=== PATIENT | female | born 1940 | race Caucasian/White ===

== ENCOUNTER 2018-02-11 08:27 | Inpatient (IN) | payer OTHER ==
--- NOTE | 2018-02-11 07:49 | HP ---
Satellite [facility] - Chief Complaint Chief Complaint: right knee pain - Past Medical History Allergies/Adverse Reactions: Allergies Allergy/AdvReac Type Severity Reaction Status Date / Time Penicillins Allergy Severe Rash Verified 02/04/18 13:29 - Current Medications Current Medications: Home Medications Medication Instructions Recorded Amlodipine Besylate 2.5 mg PO HS 02/04/18 Atorvastatin Ca [Lipitor] 10 mg PO HS 02/04/18 Carvedilol 3.125 mg PO BID 02/04/18 Duloxetine HCl [Cymbalta -] 120 mg PO HS 02/04/18 Metformin HCl [Metformin HCl ER] 500 mg PO DAILY 02/04/18 Omeprazole 40 mg PO DAILY 02/04/18 Pregabalin [Lyrica] 200 mg PO BID 02/04/18 Sitagliptin Phosphate [Januvia] 25 mg PO HS 02/04/18 Satellite Physical Exam - Physical Examination General Appearance: Well Nourished, Well Developed, Alert & Oriented x3 ENT: Clear Lung: Normal air movement Heart: Regular rate & rhythm Extremities: Other (right knee- + swelling, + ttp, decr rom, nvi xrays show grade 4 tricompartmental djd) Neurological: Intact, Alert, Oriented Satellite Impression/Plan - Impression/Plan Impression: right knee djd Operative Procedure: right celso tkr Date to be Performed: 02/11/18
[~2018-02-11 08:27] MED LIST: CEFAZOLIN 1 GM/D5W 50 ML IVPB ONE; CELECOXIB 200 MG CAPSULE PO ONE; GABAPENTIN 300 MG CAPSULE (FP) PO ONE; TRANEXAMIC ACID 1000 MG/10 ML VIAL IVPUSH ONE
[2018-02-11] MEDS ORDERED: CEFAZOLIN 1 GM/D5W 1 GM/50 ML BAG IVPB ONE (08:47)
[2018-02-11] MEDS ORDERED: CELECOXIB 200 MG CAPSULE PO ONE (08:47)
[2018-02-11] MEDS ORDERED: TRANEXAMIC ACID 1000 MG/10 ML VIAL IVPUSH ONE (08:47)
[2018-02-11] MEDS ORDERED: GABAPENTIN 300 MG CAPSULE (FP) PO ONE (08:47)
[2018-02-11] MEDS ORDERED: GABAPENTIN 300 MG CAPSULE (FP) ONE (08:53)
[2018-02-11] MEDS ORDERED: CELECOXIB 200 MG CAPSULE ONE (08:54)
[2018-02-11] MEDS ORDERED: MIDAZOLAM HCL 2 MG/2 ML SINGLE DOSE VIAL ONE (10:49)
[2018-02-11] MEDS ORDERED: BUPIVACAINE LIPOSOME/PF (EXPAREL) 266 MG/20 ML VIAL ONE (10:49)
[2018-02-11] MEDS ORDERED: BUPIVACAINE HCL/PF 2.5 MG/ML - 30 ML VIAL IJ ONE (10:49)
[2018-02-11] MEDS ORDERED: VANCOMYCIN 1,000 MG VIAL (RESTRICTED TO ID ONLY) ONE (11:01)
[2018-02-11] MEDS ORDERED: ceFAZolin SODIUM 1 GM VIAL ONE ×2 (11:01→11:34)
[2018-02-11] MEDS ORDERED: DEXAMETHASONE SOD PHOSPHATE 4 MG/1 ML VIAL ONE (11:34)
[2018-02-11] MEDS ORDERED: ONDANSETRON 4 MG/2 ML VIAL ONE (11:34)
[2018-02-11] MEDS ORDERED: TRANEXAMIC ACID 1000 MG/10 ML VIAL ONE ×2 (11:34→12:55)
[2018-02-11] MEDS ORDERED: PROMETHAZINE HCL 25 MG/1 ML VIAL IVPUSH PRN (12:42)
[2018-02-11] MEDS ORDERED: ONDANSETRON 4 MG/2 ML VIAL IVPUSH PRN (12:42)
[2018-02-11] MEDS ORDERED: oxyCODONE HCL 5 MG TABLET PO PRN (12:42)
[2018-02-11] MEDS ORDERED: VANCOMYCIN 1,000 MG VIAL (RESTRICTED TO ID ONLY) IVPB ONE (12:43)
[2018-02-11] MEDS ORDERED: MAGNESIUM HYDROX 2400MG/30ML ORAL SUSPENSION 30 ML CUP PO PRN (13:06)
--- NOTE | 2018-02-11 13:11 | OP ---
Operative Note - Note: Operative Date: 02/11/18 (jacoby) Pre-Operative Diagnosis: right knee djd Operation: right celso tkr Post-Operative Diagnosis: Same as Pre-op Surgeon: Tong Sibley Plastic Surgeon: Marky Soto Anesthesiologist/FIRE REGULATOR: Prosper Nelson Anesthesia: Spinal, Local Specimens Removed: bone fragments Estimated Blood Loss (mls): 100 Operative Report Dictated: Yes
[2018-02-11] MEDS ORDERED: LACTATED RINGERS SOLUTION 1,000 ML IV SCH (13:15)
[2018-02-11] MEDS: ACETAMINOPHEN 325 MG TABLET (FP) PO SCH ×2 (16:36→21:13)
[2018-02-11] MEDS: INSULIN SLIDING SCALE (NOVOLOG) 1 VIAL SQ SCH ×2 (17:24→22:36)
[2018-02-11] MEDS: DULoxetine HCL 30 MG CAPSULE.DR (FP) PO SCH (21:12)
[2018-02-11] MEDS: SENNOSIDES/DOCUSATE COMBO (SENNA PLUS) TABLET (UD) PO SCH ×2 (21:12→21:17)
[2018-02-11] MEDS: oxyCODONE HCL 5 MG TABLET PO PRN (21:12)
[2018-02-11] MEDS: PREGABALIN 50 MG CAPSULE PO SCH (21:12)
[2018-02-11] MEDS: CARVEDILOL 3.125 MG TABLET (FP) PO SCH (21:13)
[2018-02-11] MEDS: ATORVASTATIN CA 10 MG TABLET (FP) PO SCH (21:13)
[2018-02-11] MEDS: CEFAZOLIN 1 GM/D5W 1 GM/50 ML BAG IVPB SCH (21:13)
[2018-02-11] MEDS: oxyCODONE HCL 10 MG SUSTAINED ACTING TABLET PO SCH (21:13)
[2018-02-11] MEDS ORDERED: sitaGLIPtin PHOSPHATE 25 MG TABLET (FP) PO SCH (22:00)
[2018-02-12] MEDS: ACETAMINOPHEN 325 MG TABLET (FP) PO SCH ×4 (04:26→21:29)
[2018-02-12] MEDS: CEFAZOLIN 1 GM/D5W 1 GM/50 ML BAG IVPB SCH (04:26)
[2018-02-12] MEDS: oxyCODONE HCL 5 MG TABLET PO PRN (06:26)
[2018-02-12] MEDS: INSULIN SLIDING SCALE (NOVOLOG) 1 VIAL SQ SCH ×4 (06:27→21:38)
[2018-02-12 08:17] LABS: HEMATOCRIT 31.3 % (32.4-45.2); HEMOGLOBIN 10.4 GM/dl (10.7-15.3); MCH 26.2 pg (25.7-33.7); MCHC 33.2 g/dl (32.0-36.0); MEAN PLT VOLUME 10.5 fl (7.5-11.1); PLATELET COUNT 205 K/MM3 (134-434); RBC 3.96 M/mm3 (3.60-5.2); RDW 14.8 % (11.6-15.6); WHITE BLOOD COUNT 12.3 K/mm3 (4.0-10.8)
--- NOTE | 2018-02-12 08:59 | OP ---
DATE OF OPERATION: 02/11/2018 PREOPERATIVE DIAGNOSIS: Degenerative joint disease, right knee. POSTOPERATIVE DIAGNOSIS: Degenerative joint disease, right knee. PROCEDURE: Right total knee replacement with robotic-assisted navigation (MAKOplasty). SURGICAL ATTENDING: Tong Sibley MD ARTISTIC DIRECTOR: TALIA White ANESTHESIA: Regional and spinal. CLOSURE: A Triathlon cemented knee system with 3 femur, 3 tibia with a short 50-mm stem, a 9 polyethylene and 32 patella, number 1 Vicryl fascia, 0 and 2-0 subcutaneous and 3-0 Monocryl subcuticular with skin glue for skin, 4-0 undyed Vicryl for pin sites. ESTIMATED BLOOD LOSS: Approximately 100 mL. COMPLICATIONS: None. CONDITION: To recovery room in stable condition. DESCRIPTION OF OPERATIVE PROCEDURE: Patient taken to the operating room on February 11, 2018. Regional and spinal anesthesia were administered by the anesthesiologist. IV Kefzol administered prophylactically prior to the case as well as TXA. Well-padded pneumatic tourniquet was placed on the right proximal thigh. The right lower extremity was prepped and draped in the usual sterile fashion. A 10-12 cm longitudinal midline incision was incised over the knee, tented over the patella. Hemostasis achieved with Bovie cautery. Sharp dissection was carried down to the level of the extensor mechanism with sufficient to perform the procedure. A medial parapatellar arthrotomy was then performed, and after inverting the patella, flexed the knee up to 90 degree. Subperiosteal dissection was done on the anterior medial proximal tibia until the knee was able to be brought forward. This was facilitated by taking the menisci and anterior and posterior cruciate ligaments. Checkpoints were malleted both the femur and the tibia, going obliquely from the medial and femoral condyle. Two threaded pins were drilled in parallel fashion, and these pins were fastened in the navigation array for the Raf navigation device. Through 2 small stab incisions distally on the tibia, 2 pins were drilled in parallel fashion through the outer cortex then up into the notch the posterior cortex. Again, the navigation securely fastened. The knee was then registered with the navigation device with center of rotation at the hip, medial and lateral malleoli, and multiple points on both the femur and on the tibia. Excellent registration was obtained and was confirmed by "popping the bubbles." At this point, all the osteophytes were removed circumferentially around the knee. The knee was then stressed in varus, valgus at both 0 and 90 degrees gaps, the virtual position of the component was optimized to insure equal gapping in both flexion and extension. The robot was then brought onto the field and was used to osteotomize the bone as per our virtual position as directed by the Raf device. Trial components were applied, the 9-mm insert and found to have full extension, full flexion, with good tension throughout. Patella was and then was osteotomized at the appropriate level. Excellent tracking of the patella from full extension to full flexion was obtained. The trial components were removed. The keel was then malleted. The bone was very soft, and some of the anterior cortex was found to be peeling off. It was thus decided to add a short, 15-mm extension to the tibial baseplate. The knee was pulse antibiotic irrigated, the leg was exsanguinated with an Esmarch bandage. The real components were then cemented in using modern generation cement technique with antibiotic cement. Pressurization and extension were performed, all excess cement was removed. After the cement got hard, the knee was thoroughly inspected to remove any excess cement. The real 9-mm insert was then applied. Again, the knee was taken through a range of motion and found to have full extension, full flexion with excellent tracking of the patella throughout. The area was thoroughly irrigated again with antibiotic irrigation. Vancomycin powder was administered into the arthrotomy. The medial parapatellar arthrotomy was then closed using number 1 Vicryl interrupted suture. This was performed after the pins were removed as were the checkpoints. The subcutaneous was pulse antibiotic irrigated and closed in layers with 0 and 2-0 Vicryl, 3-0 Monocryl subcuticular with skin glue. The pins in the tibia were removed and pin sites closed using 4-0 undyed Vicryl. An Aquacel pressure dressing was applied, the patient awakened from anesthesia, and transferred in stable condition with no complications. Estimated blood loss less than 100 mL. The tourniquet was prior to cementing and was deflated after the cement got hard. Postoperative x-rays revealed excellent position and . She was transferred to recovery in stable condition with no complications. Brady [id number]
--- NOTE | 2018-02-12 09:54 | PN ---
Progress Note, Physician Chief Complaint: day #1 s/p right TKR - Current Medication List Current Medications: Active Medications Acetaminophen (Tylenol -) 650 mg PO Q6H [facility] Stop: 02/14/18 15:59 Last Admin: 02/12/18 04:26 Dose: 650 mg Al Hydroxide/Mg Hydroxide (Mylanta Oral Suspension -) 30 ml PO Q4H PRN PRN Reason: DYSPEPSIA Amlodipine Besylate (Norvasc -) 2.5 mg PO DAILY [facility] Aspirin (Asa -) 325 mg PO DAILY@0800 [facility] Atorvastatin Calcium (Lipitor -) 10 mg PO HS [facility] Last Admin: 02/11/18 21:13 Dose: 10 mg Carvedilol (Coreg -) 3.125 mg PO BID [facility] Last Admin: 02/11/18 21:13 Dose: 3.125 mg Duloxetine HCl (Cymbalta -) 120 mg PO [facility] Last Admin: 02/11/18 21:12 Dose: 120 mg Fentanyl (Sublimaze Injection -) 25 mcg IVPUSH [id number] PRN PRN Reason: PAIN-PACU ORDER X 4 DOSES ONLY Insulin Aspart (Novolog Vial Sliding Scale -) 1 vial SQ [facility]; Protocol Last Admin: 02/12/18 06:27 Dose: 6 units Magnesium Hydroxide (Milk Of Magnesia -) 30 ml PO PRN PRN PRN Reason: CONSTIPATION Metformin HCl (Glucophage Xr -) 500 mg PO DAILY [facility] Multivitamins/Minerals/Vitamin C (Tab-A-Vit -) 1 tab PO DAILY [facility] Ondansetron HCl (Zofran Injection) 4 mg IVPUSH Q6H PRN PRN Reason: NAUSEA AND/OR VOMITING Oxycodone HCl (Roxicodone -) 5 mg PO Q3H PRN PRN Reason: PAIN LEVEL 1-5 Oxycodone HCl (Roxicodone -) 10 mg PO Q3H PRN PRN Reason: PAIN LEVEL 6-10 Last Admin: 02/12/18 06:26 Dose: 10 mg Oxycodone HCl (Oxycontin -) 10 mg PO BID [facility] Stop: 02/14/18 12:42 Last Admin: 02/11/18 21:13 Dose: 10 mg Pantoprazole Sodium (Protonix -) 40 mg PO DAILY [facility] Pregabalin (Lyrica -) 200 mg PO BID [facility] Last Admin: 02/11/18 21:12 Dose: 200 mg Promethazine HCl (Phenergan Injection -) 12.5 mg IVPUSH Q6H PRN PRN Reason: NAUSEA-FOR RESCUE AFTER 15 MIN Senna/Docusate Sodium (Pericolace -) 2 tablet PO BID [facility] Last Admin: 02/11/18 21:17 Dose: Not Given Sitagliptin Phosphate (Januvia -) 25 mg PO BID [facility] - Objective Vital Signs: Vital Signs Temperature 97.8 F 02/12/18 06:17 Pulse Rate 82 02/12/18 06:17 Respiratory Rate 18 02/12/18 06:17 Blood Pressure 149/57 02/12/18 06:17 O2 Sat by Pulse Oximetry (%) 96 02/12/18 06:17 Labs: CBC, BMP 02/12/18 07:30 Assessment/Plan Pt with some pain this morning, that improved with PO pain meds. Pt eating, OOB to chair, currently resting comfortably
[2018-02-12] MEDS ORDERED: PANTOPRAZOLE 40 MG TABLET (FP) PO SCH (10:00)
[2018-02-12] MEDS ORDERED: sitaGLIPtin PHOSPHATE 25 MG TABLET (FP) PO ONE (10:00)
--- NOTE | 2018-02-12 12:23 | PN ---
Progress Note (short form) - Note Progress Note: Ortho Pt seen and examined s/p right celso tkr pod #1 Selected Entries 02/12/18 06:17 Temperature 97.8 F Pulse Rate 82 Respiratory 18 Rate Blood Pressure 149/57 Laboratory Tests 02/12/18 07:30 WBC 12.3 H Hgb 10.4 L Hct 31.3 L Plt Count 205 dressing c/d/i, calf soft, nt rom 0-50, nvi a/p PT dvt ppx pain control d/c planning to rehab
[2018-02-12] MEDS: PANTOPRAZOLE 40 MG TABLET (FP) PO SCH (13:00)
[2018-02-12] MEDS: CARVEDILOL 3.125 MG TABLET (FP) PO SCH ×2 (13:00→21:30)
[2018-02-12] MEDS: PREGABALIN 50 MG CAPSULE PO SCH ×2 (13:00→21:30)
[2018-02-12] MEDS: MULTIVITAMINS (DAILY MVI) TABLET (FP) PO SCH (13:00)
[2018-02-12] MEDS: ASPIRIN 325 MG TABLET PO SCH (13:00)
[2018-02-12] MEDS: amLODIPine BESYLATE 2.5 MG TABLET (FP) PO SCH (13:00)
[2018-02-12] MEDS: oxyCODONE HCL 10 MG SUSTAINED ACTING TABLET PO SCH ×2 (19:12→21:31)
[2018-02-12] MEDS: SENNOSIDES/DOCUSATE COMBO (SENNA PLUS) TABLET (UD) PO SCH ×2 (19:12→21:31)
[2018-02-12] MEDS: ATORVASTATIN CA 10 MG TABLET (FP) PO SCH (21:30)
[2018-02-12] MEDS: DULoxetine HCL 30 MG CAPSULE.DR (FP) PO SCH (21:30)
[2018-02-13] MEDS: MAG HYDROX/AL HYDROX/SIMETH 30 ML UNIT-DOSE CUP PO PRN ×2 (05:41→23:21)
[2018-02-13] MEDS: INSULIN SLIDING SCALE (NOVOLOG) 1 VIAL SQ SCH ×4 (06:35→22:00)
[2018-02-13] MEDS: ACETAMINOPHEN 325 MG TABLET (FP) PO SCH ×4 (06:35→22:02)
[2018-02-13] MEDS ORDERED: ONDANSETRON 4 MG/2 ML VIAL IVPUSH PRN (08:17)
--- NOTE | 2018-02-13 08:18 | PN ---
Progress Note (short form) - Note Progress Note: Ortho Pt seen and examined s/p right celso tkr pod #2. c/o nausea Selected Entries 02/13/18 06:00 Temperature 98.1 F Pulse Rate 67 Respiratory 20 Rate Blood Pressure 108/50 Laboratory Tests 02/13/18 07:55 WBC Pending Hgb Pending Hct Pending Plt Count Pending dressing c/d/i, calf soft, nt rom 0-50, nvi a/p Zofran ordered PT dvt ppx pain control d/c planning to rehab for tomorrow if stable
[2018-02-13] MEDS: ASPIRIN 325 MG TABLET PO SCH (08:19)
[2018-02-13 08:24] LABS: HEMATOCRIT 32.7 % (32.4-45.2); HEMOGLOBIN 10.9 GM/dl (10.7-15.3); MCH 26.5 pg (25.7-33.7); MCHC 33.2 g/dl (32.0-36.0); MEAN CELL VOLUME 79.6 fl (80-96); MEAN PLT VOLUME 9.9 fl (7.5-11.1); PLATELET COUNT 168 K/MM3 (134-434); RBC 4.11 M/mm3 (3.60-5.2); RDW 14.9 % (11.6-15.6); WHITE BLOOD COUNT 14.9 K/mm3 (4.0-10.8)
[2018-02-13] MEDS: ONDANSETRON *ODT* 4 MG TABLET SL PRN (08:49)
[2018-02-13] MEDS ORDERED: ONDANSETRON 4 MG/2 ML VIAL ONE (09:23)
[2018-02-13] MEDS: CARVEDILOL 3.125 MG TABLET (FP) PO SCH ×2 (11:31→22:00)
[2018-02-13] MEDS: PREGABALIN 50 MG CAPSULE PO SCH ×2 (11:32→22:00)
[2018-02-13] MEDS: amLODIPine BESYLATE 2.5 MG TABLET (FP) PO SCH (11:32)
[2018-02-13] MEDS: MULTIVITAMINS (DAILY MVI) TABLET (FP) PO SCH (11:33)
[2018-02-13] MEDS: oxyCODONE HCL 10 MG SUSTAINED ACTING TABLET PO SCH ×2 (11:33→22:01)
[2018-02-13] MEDS: PANTOPRAZOLE 40 MG TABLET (FP) PO SCH (11:33)
[2018-02-13] MEDS: SENNOSIDES/DOCUSATE COMBO (SENNA PLUS) TABLET (UD) PO SCH ×2 (11:33→22:01)
--- NOTE | 2018-02-13 13:37 | CONSULT ---
Consultation: REQUESTING PROVIDER: Dr Agosto CONSULT REQUEST: We have been asked to medically evaluate this patient for nause and vomiting HISTORY OF PRESENT ILLNESS: Patient is a 77 y/o female with a past medical history of hypertension, hyperlipidemia, DM,GERD, ovarian CA, lymphoma, small bowel obstruction October 2017 8 day hospitalization at [facility] resolved with medical management, and depression. Patient is S/P right total knee replacement postoperative day 1 spinal anesthesia. REVIEW OF SYSTEMS: CONSTITUTIONAL: Absent: fever, chills, diaphoresis, generalized weakness, malaise, loss of appetite, weight change HEENT: Absent: rhinorrhea, nasal congestion, throat pain, throat swelling, difficulty swallowing, mouth swelling, ear pain, eye pain, visual changes CARDIOVASCULAR: Absent: chest pain, syncope, palpitations, irregular heart rate, lightheadedness , peripheral edema RESPIRATORY: Absent: cough, shortness of breath, dyspnea with exertion, orthopnea, wheezing, stridor, hemoptysis GASTROINTESTINAL: present: nausea, vomiting, Absent: abdominal pain, abdominal distension, diarrhea, constipation, melena, hematochezia GENITOURINARY: Absent: dysuria, frequency, urgency, hesitancy, hematuria, flank pain, genital pain MUSCULOSKELETAL: Absent: myalgia, arthralgia, joint swelling, back pain, neck pain Present: right knee pain SKIN: Absent: rash, itching, pallor HEMATOLOGIC/IMMUNOLOGIC: Absent: easy bleeding, easy bruising, lymphadenopathy, frequent infections ENDOCRINE: Absent: unexplained weight gain, unexplained weight loss, heat intolerance, cold intolerance NEUROLOGIC: Absent: headache, focal weakness or paresthesias, dizziness, unsteady gait, seizure, mental status changes, bladder or bowel incontinence PSYCHIATRIC: Absent: anxiety, depression, suicidal or homicidal ideation, hallucinations. PHYSICAL EXAMINATION Vital Signs - 24 hr 02/12/18 02/12/18 02/13/18 13:51 22:35 06:00 Temperature 97.8 F 97.8 F 98.1 F Pulse Rate 66 66 67 Respiratory 16 19 20 Rate Blood Pressure 118/46 127/49 108/50 O2 Sat by Pulse 95 94 L Oximetry (%) GENERAL: Awake, alert, and fully oriented, in no acute distress. HEAD: Normal with no signs of trauma. EYES: Pupils equal, round and reactive to light, extraocular movements intact, sclera anicteric, conjunctiva clear. No lid lag. EARS, NOSE, THROAT: Ears normal, nares patent, oropharynx clear without exudates. Moist mucous membranes. NECK: Normal range of motion, supple without lymphadenopathy, JVD, or masses. LUNGS: Breath sounds equal, clear to auscultation bilaterally. No wheezes, and no crackles. No accessory muscle use. HEART: Regular rate and rhythm, normal S1 and S2 without murmur, rub or gallop. ABDOMEN: Soft, nontender, not distended, normoactive bowel sounds, no guarding, no rebound, no masses. No hepatomegaly or splenomegaly. MUSCULOSKELETAL: Normal range of motion at all joints. No bony deformities or tenderness. No CVA tenderness. UPPER EXTREMITIES: 2+ pulses, warm, well-perfused. No cyanosis. No clubbing. Cap refill <2 seconds. No peripheral edema. LOWER EXTREMITIES: 2+ pulses, warm, well-perfused. No calf tenderness. No peripheral edema. RIGHT LOWER EXTREMITY: dressing CDI less than 3 second capillary refill +4 pedal pulse NEUROLOGICAL: Cranial nerves II-XII intact. Normal speech. Normal gait. PSYCHIATRIC: Cooperative. Good eye contact. Appropriate mood and affect. SKIN: Warm, dry, normal turgor, no rashes or lesions noted. Laboratory Results - last 24 hr 02/12/18 02/12/18 02/13/18 14:42 21:36 06:23 WBC RBC Hgb Hct MCV MCH MCHC RDW Plt Count MPV POC Glucometer 206 157 199 02/13/18 07:55 WBC 14.9 H RBC 4.11 Hgb 10.9 Hct 32.7 MCV 79.6 L MCH 26.5 MCHC 33.2 RDW 14.9 Plt Count 168 MPV 9.9 POC Glucometer Active Medications Generic Name Dose Route Start Last Admin Trade Name Freq PRN Reason Stop Dose Admin Acetaminophen 650 mg 02/11/18 16:00 02/13/18 12:50 Tylenol - PO 02/14/18 15:59 Not Given Q6H BEN Al Hydroxide/Mg Hydroxide 30 ml 02/11/18 13:06 02/13/18 05:41 Mylanta Oral Suspension - PO 30 ml Q4H PRN Administration DYSPEPSIA Amlodipine Besylate 2.5 mg 02/12/18 10:00 02/13/18 11:32 Norvasc - PO Not Given DAILY [facility] Aspirin 325 mg 02/12/18 08:00 02/13/18 08:19 Asa - PO 325 mg DAILY@0800 [facility] Administration Atorvastatin Calcium 10 mg 02/11/18 22:00 02/12/18 21:30 Lipitor - PO 10 mg HS [facility] Administration Carvedilol 3.125 mg 02/11/18 22:00 02/13/18 11:31 Coreg - PO Not Given BID [facility] Duloxetine HCl 120 mg 02/11/18 22:00 02/12/18 21:30 Cymbalta - PO 120 mg HS [facility] Administration Fentanyl 25 mcg 02/11/18 12:42 Sublimaze Injection - IVPUSH [id number] PRN PAIN-PACU ORDER X 4 DOSES ONLY Insulin Aspart 1 vial 02/11/18 16:30 02/13/18 12:50 Novolog Vial Sliding Scale - SQ Not Given ACHS [facility] Protocol Magnesium Hydroxide 30 ml 02/11/18 13:06 Milk Of Magnesia - PO PRN PRN CONSTIPATION Metformin HCl 500 mg 02/12/18 10:00 02/13/18 11:32 Glucophage Xr - PO Not Given DAILY [facility] Multivitamins/Minerals/Vitamin C 1 tab 02/12/18 10:00 02/13/18 11:33 Tab-A-Vit - PO Not Given DAILY [facility] Ondansetron HCl 4 mg 02/13/18 08:27 02/13/18 08:49 Zofran Odt - SL 4 mg Q6H PRN Administration NAUSEA AND/OR VOMITING Oxycodone HCl 5 mg 02/11/18 12:42 Roxicodone - PO Q3H PRN PAIN LEVEL 1-5 Oxycodone HCl 10 mg 02/11/18 12:42 02/12/18 06:26 Roxicodone - PO 10 mg Q3H PRN Administration PAIN LEVEL 6-10 Oxycodone HCl 10 mg 02/11/18 22:00 02/13/18 11:33 Oxycontin - PO 02/14/18 12:42 Not Given BID [facility] Pantoprazole Sodium 40 mg 02/12/18 10:00 02/13/18 11:33 Protonix - PO Not Given DAILY [facility] Pregabalin 200 mg 02/11/18 22:00 02/13/18 11:32 Lyrica - PO Not Given BID [facility] Promethazine HCl 12.5 mg 02/11/18 12:42 02/13/18 09:30 Phenergan Injection - IVPUSH 12.5 mg Q6H PRN Administration NAUSEA-FOR RESCUE AFTER 15 MIN Senna/Docusate Sodium 2 tablet 02/11/18 22:00 02/13/18 11:33 Pericolace - PO Not Given BID [facility] Sitagliptin Phosphate 25 mg 02/11/18 22:00 Januvia - PO BID [facility] ASSESSMENT/PLAN: 1)MS S/P right total knee replacement - When necessary pain medication - Physical therapy as per the orthopedist - Incentive spirometry 2) GI nausea/vomiting - + BS on exam, patient passing flatus - continue phenergran - advise full liquid diet, close monitoring if nausea and vomiting continues advice abdomen flat and upright GERD - continue protonix 3) endo DM - continue januvia, metformin, fingersticks before meals and at bedtime 4) cardiovascular Hypertension - continue Coreg, blood pressure remains at goal Dispo: We will continue to follow the patient. Thank you for this consultative opportunity. Visit type - Emergency Visit Emergency Visit: No - New Patient This patient is new to me today: Yes Date on this admission: 02/13/18 - Critical Care Critical Care patient: No
[2018-02-13] MEDS ORDERED: PANTOPRAZOLE SODIUM 40 MG VIAL IVPUSH ONE (13:38)
[2018-02-13 15:15] VITALS: BMI 28.2
--- NOTE | 2018-02-13 16:52 | PATH ---
Surgical Pathology Report Patient Name: ANTONIO RENNER Med. Rec. #: [id number] /Age/Gender: 1940 (Age: 77) / F Account: [id number] Location: [facility] MED-SURG Taken: 02/11/2018 Received: 02/11/2018 Reported: 02/13/2018 Physicians: Tong Sibley M.D. Specimen(s) Received RIGHT KNEE BONES Clinical History Osteoarthritis right knee Final Diagnosis RIGHT KNEE BONES, RESECTION: DEGENERATIVE JOINT DISEASE, RIGHT KNEE. Electronically Signed Karina Obrien M.D. Gross Description Received in formalin labeled "right knee bones," is a 10.5 x 9.5 x 1.6 cm aggregate of multiple portions of bone and soft tissue. The tibial plateau measures 7.0 x 5.2 x 1.5 cm. There is a 3 cm in greatest dimension area of eburnation identified. The remaining articular surfaces are parker-yellow and diffusely granular. The underlying trabecular bone is yellow and hard. Pack Master sections are submitted in one cassette, following decalcification. 02/12/2018 [facility]02/12/2018
[2018-02-13] MEDS: DULoxetine HCL 30 MG CAPSULE.DR (FP) PO SCH (22:00)
[2018-02-13] MEDS: ATORVASTATIN CA 10 MG TABLET (FP) PO SCH (22:00)
[2018-02-14] MEDS: CARVEDILOL 3.125 MG TABLET (FP) PO SCH ×2 (00:32→23:59)
[2018-02-14] MEDS: INSULIN SLIDING SCALE (NOVOLOG) 1 VIAL SQ SCH ×2 (07:15→17:14)
[2018-02-14] MEDS: ACETAMINOPHEN 325 MG TABLET (FP) PO SCH ×2 (07:15→13:31)
[2018-02-14] MEDS: ASPIRIN 325 MG TABLET PO SCH (07:39)
--- NOTE | 2018-02-14 10:19 | PN ---
Progress Note (short form) - Note Progress Note: Ortho Pt seen and examined s/p right celso tkr pod #3. feeling better today but still having nausea and vomitting Selected Entries 02/14/18 06:00 Temperature 98.0 F Pulse Rate 80 Respiratory 20 Rate Blood Pressure 149/65 Laboratory Tests 02/13/18 07:55 WBC 14.9 H Hgb 10.9 Hct 32.7 Plt Count 168 dressing c/d/i, calf soft, nt rom 0-50, nvi a/p phenergan PT dvt ppx pain control d/c planning to rehab can d/c if n/v significantly better otherwise d/c tomorrow
--- NOTE | 2018-02-14 10:59 | PN ---
Physical Exam: SUBJECTIVE: Patient seen and examined. She has nausea and vomiting. She is not able to hold food down. Per Daughter at bedside, vomitius appears as feces and smells as such OBJECTIVE: Vital Signs Period Temp Pulse Resp BP Sys/Dia Pulse Ox Last 24 Hr 98 F-98.8 F 71-80 16-20 110-149/51-65 95-97 PE Neuro: alert, awake, cn 2-12intact Pulm: diminished, clear CV: s1 s2 rrr no mrg Abd: epigastric tenderness to palpation, + nausea Ext: warm, no le edema Laboratory Results - last 24 hr 02/13/18 02/14/18 02/14/18 16:54 00:22 07:11 POC Glucometer 164 178 180 Active Medications Generic Name Dose Route Start Last Admin Trade Name Freq PRN Reason Stop Dose Admin Acetaminophen 650 mg 02/11/18 16:00 02/14/18 07:15 Tylenol - PO 02/14/18 15:59 Not Given Q6H BEN Al Hydroxide/Mg Hydroxide 30 ml 02/11/18 13:06 02/13/18 23:21 Mylanta Oral Suspension - PO 30 ml Q4H PRN Administration DYSPEPSIA Amlodipine Besylate 2.5 mg 02/12/18 10:00 02/13/18 11:32 Norvasc - PO Not Given DAILY [facility] Aspirin 325 mg 02/12/18 08:00 02/14/18 07:39 Asa - PO 325 mg DAILY@0800 [facility] Administration Atorvastatin Calcium 10 mg 02/11/18 22:00 02/13/18 22:00 Lipitor - PO Not Given HS [facility] Carvedilol 3.125 mg 02/11/18 22:00 02/14/18 00:32 Coreg - PO Not Given BID [facility] Duloxetine HCl 120 mg 02/11/18 22:00 02/13/18 22:00 Cymbalta - PO Not Given HS [facility] Fentanyl 25 mcg 02/11/18 12:42 Sublimaze Injection - IVPUSH [id number] PRN PAIN-PACU ORDER X 4 DOSES ONLY Insulin Aspart 1 vial 02/11/18 16:30 02/14/18 07:15 Novolog Vial Sliding Scale - SQ 4 units ACHS [facility] Administration Protocol Magnesium Hydroxide 30 ml 02/11/18 13:06 02/14/18 07:40 Milk Of Magnesia - PO 30 ml PRN PRN Administration CONSTIPATION Metformin HCl 500 mg 02/12/18 10:00 02/13/18 11:32 Glucophage Xr - PO Not Given DAILY [facility] Multivitamins/Minerals/Vitamin C 1 tab 02/12/18 10:00 02/13/18 11:33 Tab-A-Vit - PO Not Given DAILY [facility] Ondansetron HCl 4 mg 02/13/18 08:27 02/13/18 08:49 Zofran Odt - SL 4 mg Q6H PRN Administration NAUSEA AND/OR VOMITING Oxycodone HCl 5 mg 02/11/18 12:42 Roxicodone - PO Q3H PRN PAIN LEVEL 1-5 Oxycodone HCl 10 mg 02/11/18 12:42 02/12/18 06:26 Roxicodone - PO 10 mg Q3H PRN Administration PAIN LEVEL 6-10 Oxycodone HCl 10 mg 02/11/18 22:00 02/13/18 22:01 Oxycontin - PO 02/14/18 12:42 Not Given BID [facility] Pantoprazole Sodium 40 mg 02/12/18 10:00 02/13/18 11:33 Protonix - PO Not Given DAILY [facility] Pregabalin 200 mg 02/11/18 22:00 02/13/18 22:00 Lyrica - PO Not Given BID [facility] Promethazine HCl 12.5 mg 02/11/18 12:42 02/13/18 09:30 Phenergan Injection - IVPUSH 12.5 mg Q6H PRN Administration NAUSEA-FOR RESCUE AFTER 15 MIN Senna/Docusate Sodium 2 tablet 02/11/18 22:00 02/13/18 22:01 Pericolace - PO 2 tablet BID [facility] Administration Sitagliptin Phosphate 25 mg 02/11/18 22:00 Januvia - PO BID [facility] Assessment: 77 year old female with pmhx with HTN, HLD, DM II, GERD, ovarian CA , lymphoma, s/p 8 day hospital for SBO 10/2017 at [facility] resolved with medical mgmt , now at s/p TKR. Plan: 1. Total knee replacement 02/11 - Continue PT, pain meds - Rehab pending medically stable - Lovenox sq 2. Vomiting, nausea - s/p phenergan - Obtain abd xray r/o SBO - Continue full liquids 3. HTN, CAD - Coreg, Norvasc, ASA, statin 4. DM II - ISS, BGM ACHS - Hold PO antidiabetics 5. DVT - Lovenox sq Visit type - Emergency Visit Emergency Visit: Yes ED Registration Date: 02/11/18 Care time: The patient presented to the Emergency Department on the above date and was hospitalized for further evaluation of their emergent condition. - New Patient This patient is new to me today: Yes Date on this admission: 02/14/18 - Critical Care Critical Care patient: No
[2018-02-14] MEDS ORDERED: ENOXAPARIN NA (PORCINE) 40 MG/0.4 ML DISP.SYRIN SQ SCH (11:15)
[2018-02-14] MEDS: oxyCODONE HCL 10 MG SUSTAINED ACTING TABLET PO SCH (13:31)
[2018-02-14] MEDS: SENNOSIDES/DOCUSATE COMBO (SENNA PLUS) TABLET (UD) PO SCH (13:31)
[2018-02-14] MEDS: PANTOPRAZOLE 40 MG TABLET (FP) PO SCH (13:31)
[2018-02-14] MEDS: amLODIPine BESYLATE 2.5 MG TABLET (FP) PO SCH (13:31)
[2018-02-14] MEDS: MULTIVITAMINS (DAILY MVI) TABLET (FP) PO SCH (13:31)
[2018-02-14] MEDS: PREGABALIN 50 MG CAPSULE PO SCH (13:31)
[2018-02-14] MEDS: ONDANSETRON *ODT* 4 MG TABLET SL PRN (15:43)
[2018-02-14] MEDS ORDERED: METOCLOPRAMIDE HCL INJECTION 10 MG/2 ML VIAL IVPUSH ONE (21:30)
[2018-02-14] MEDS ORDERED: SODIUM PHOSPHATE/NA BIPHOS 133 ML ENEMA PR ONE (21:30)
[2018-02-15] MEDS: SENNOSIDES/DOCUSATE COMBO (SENNA PLUS) TABLET (UD) PO SCH ×3 (00:01→21:13)
[2018-02-15] MEDS: INSULIN SLIDING SCALE (NOVOLOG) 1 VIAL SQ SCH ×4 (07:34→22:29)
--- NOTE | 2018-02-15 11:05 | PN ---
Physical Exam: SUBJECTIVE: Patient seen and examined OBJECTIVE: abd xray shows possible sbo CT abd ordered vomiting when attempting to swallow thin liquids small amt of brown vomitus, apx 100cc NPO now Abdominal not distended but is tender to palpation NGT if vomiting and if becomes distended, pt refusing NGT at this time Vital Signs Period Temp Pulse Resp BP Sys/Dia Pulse Ox Last 24 Hr 97.7 F-98.7 F 74-79 18-20 142-151/54-70 94-96 GENERAL: The patient is awake, alert, and fully oriented, in no acute distress. HEAD: Normal with no signs of trauma. EYES: PERRL, extraocular movements intact, sclera anicteric, conjunctiva clear. No ptosis. ENT: Ears normal, nares patent, oropharynx clear without exudates, moist mucous membranes. NECK: Trachea midline, full range of motion, supple. LUNGS: Breath sounds equal, clear to auscultation bilaterally, no wheezes, no crackles, no accessory muscle use. HEART: Regular rate and rhythm, S1, S2 without murmur, rub or gallop. ABDOMEN: soft, non distended, non tender, + bowel sounds, abx xray shows possible SBO EXTREMITIES: 2+ pulses, warm, well-perfused, no edema. NEUROLOGICAL: Cranial nerves II through XII grossly intact. Normal speech, gait not observed. PSYCH: Normal mood, normal affect. SKIN: Warm, dry, normal turgor, no rashes or lesions noted Laboratory Results - last 24 hr 02/14/18 02/14/18 02/15/18 17:03 23:56 07:31 POC Glucometer 159 173 163 Active Medications Generic Name Dose Route Start Last Admin Trade Name Freq PRN Reason Stop Dose Admin Al Hydroxide/Mg Hydroxide 30 ml 02/11/18 13:06 02/13/18 23:21 Mylanta Oral Suspension - PO 30 ml Q4H PRN Administration DYSPEPSIA Amlodipine Besylate 2.5 mg 02/12/18 10:00 02/14/18 13:31 Norvasc - PO 2.5 mg DAILY BEN Administration Aspirin 325 mg 02/12/18 08:00 02/14/18 07:39 Asa - PO 325 mg DAILY@0800 BEN Administration Atorvastatin Calcium 10 mg 02/11/18 22:00 02/15/18 00:00 Lipitor - PO Not Given HS [facility] Carvedilol 3.125 mg 02/11/18 22:00 02/14/18 23:59 Coreg - PO Not Given BID [facility] Duloxetine HCl 120 mg 02/11/18 22:00 02/15/18 00:00 Cymbalta - PO Not Given HS [facility] Fentanyl 25 mcg 02/11/18 12:42 Sublimaze Injection - IVPUSH [id number] PRN PAIN-PACU ORDER X 4 DOSES ONLY Insulin Aspart 1 vial 02/14/18 11:07 02/15/18 07:34 Novolog Vial Sliding Scale - SQ 2 units ACHS BEN Administration Protocol Magnesium Hydroxide 30 ml 02/11/18 13:06 02/14/18 07:40 Milk Of Magnesia - PO 30 ml PRN PRN Administration CONSTIPATION Multivitamins/Minerals/Vitamin C 1 tab 02/12/18 10:00 02/14/18 13:31 Tab-A-Vit - PO 1 tab DAILY BEN Administration Ondansetron HCl 4 mg 02/13/18 08:27 02/14/18 15:43 Zofran Odt - SL 4 mg Q6H PRN Administration NAUSEA AND/OR VOMITING Pantoprazole Sodium 40 mg 02/12/18 10:00 02/14/18 13:31 Protonix - PO 40 mg DAILY BEN Administration Pregabalin 200 mg 02/11/18 22:00 02/15/18 00:00 Lyrica - PO Not Given BID [facility] Promethazine HCl 12.5 mg 02/11/18 12:42 02/13/18 09:30 Phenergan Injection - IVPUSH 12.5 mg Q6H PRN Administration NAUSEA-FOR RESCUE AFTER 15 MIN Senna/Docusate Sodium 2 tablet 02/11/18 22:00 02/15/18 00:01 Pericolace - PO Not Given BID [facility] ASSESSMENT/PLAN: Patient is a 77 year old female with a signficant past medical history of hypertension, HLD, diabetes, GERD, ovarian cancer, lymphoma and cholecystectomy. She is also has a history of small bowel obstructions in at [facility] which was reported to resolve with medical management. She was admitted to [place] for total knee replacement on 02/11/2018. Imaging: CT abd: findings suspicious for high grade partial SBO, location and site cannot be determined without complete imaging of the pelvis. 2. Hyperdense right upper pole renal mass. A malignancy cannot be excluded and additional contrast enhanced imaging is now recommended. Ortho: Total knee replacement Physical therapy Pain management Lovenox Ortho following GI: Acute Nausea/Vomiting, found to have a partial SBO CT noted above NPO, IVF, NGT placed by surgery Abd xray in a.m. Monitor output of NGT Repeat abd xray in a.m. Surgery following Card: Hypertension, chronic Monitor BP while NPO Endo: Diabetes BGMs q6 while NPO Oncology/Renal: Hx of ovarian cancder, Lymphoma and CT shows renal mass Renal MRI with contrast once acute symptoms resolve DVT: heparin Disposition: full code Visit type - Emergency Visit Emergency Visit: Yes ED Registration Date: 02/11/18 Care time: The patient presented to the Emergency Department on the above date and was hospitalized for further evaluation of their emergent condition. - New Patient This patient is new to me today: Yes Date on this admission: 02/15/18 - Critical Care Critical Care patient: No - Discharge Referral Referred to [facility] Med P.C.: No
[2018-02-15 11:40] LABS: BASO % 2.3 % (0-2.0); EOS % 0.3 % (0-4.5); HEMATOCRIT 34.8 % (32.4-45.2); HEMOGLOBIN 11.6 GM/dl (10.7-15.3); LYMPH % 17.7 % (8-40); MCH 26.2 pg (25.7-33.7); MCHC 33.2 g/dl (32.0-36.0); MEAN PLT VOLUME 9.5 fl (7.5-11.1); MONO % 10.3 % (3.8-10.2); NEUT % 69.4 % (42.8-82.8); PLATELET COUNT 215 K/MM3 (134-434); RBC 4.41 M/mm3 (3.60-5.2); WHITE BLOOD COUNT 13.3 K/mm3 (4.0-10.8)
[2018-02-15 12:02] LABS: ALBUMIN 3.1 g/dl (3.5-5.0); ALK PHOS 65 U/L (32-92); ANION GAP 11 (8-16); BILIRUBIN,TOTAL 2.1 mg/dl (0.2-1.0); BLOOD UREA NITROGEN 20 mg/dl (7-18); CHLORIDE 94 mmol/L (98-107); CO2 31 mmol/L (22-28); CREATININE 0.9 mg/dl (0.6-1.3); GLUCOSE,RANDOM 152 mg/dl (74-106); MAGNESIUM 2.1 mg/dL (1.8-2.4); POTASSIUM 4.1 mmol/L (3.5-5.1); SGOT/AST 34 U/L (10-42); SGPT/ALT 17 U/L (10-40); SODIUM 136 mmol/L (136-145); TOT PROT 6.9 g/dl (6.4-8.3)
--- NOTE | 2018-02-15 14:48 | CONSULT ---
- Consultation REQUESTING PROVIDER: ALEX Galo CONSULT REQUEST: We have been asked to surgically evaluate this patient for nausea/vomiting and abdominal pain. PCP: Tong Sibley HISTORY OF PRESENT ILLNESS: CTSP who is # days s/p orthopedic surgery who has had nausea and vomiting and inability to tolerate PO post op; she has not passed flatus or had a bowel movement; she had an SBO earlier this year which responeded to conservative tx. w/o an NGT which the patient had refused. PMHx: hyperlipidemia/NIDDM PSHx: open marielos Home Medications Medication Instructions Recorded Amlodipine Besylate 2.5 mg PO DAILY 02/04/18 Atorvastatin Ca [Lipitor] 10 mg PO HS 02/04/18 Carvedilol 3.125 mg PO BID 02/04/18 Duloxetine HCl [Cymbalta -] 120 mg PO HS 02/04/18 Metformin HCl [Metformin HCl ER] 500 mg PO DAILY 02/04/18 Omeprazole 40 mg PO DAILY 02/04/18 Pregabalin [Lyrica] 200 mg PO BID 02/04/18 Sitagliptin Phosphate [Januvia] 25 mg PO DAILY 02/04/18 Aspirin [ASA -] 325 mg PO DAILY@0800 tablet 02/11/18 Allergies Allergy/AdvReac Type Severity Reaction Status Date / Time Penicillins Allergy Severe Rash Verified 02/04/18 13:29 PHYSICAL EXAM: GENERAL: Awake, alert, and fully oriented, in acute distress and vomiting. HEAD: Normal with no signs of trauma. EYES: PERRL, sclera anicteric, conjunctiva clear. NECK: Normal ROM, supple without lymphadenopathy, JVD, or masses. ABDOMEN: Soft, nontender, distended, absent bowel sounds, no guarding, no rebound, no masses. No organomegaly. No hernias; tympany is present PSYCH: Cooperative. Good eye contact. Appropriate mood and affect. SKIN: Warm, dry, normal turgor, no rashes or lesions noted. Vital Signs Temperature 98.1 F 02/15/18 14:11 Pulse Rate 64 02/15/18 14:11 Respiratory Rate 19 02/15/18 14:11 Blood Pressure 125/50 02/15/18 14:11 O2 Sat by Pulse Oximetry (%) 94 L 02/15/18 14:11 Lab Results WBC 13.3 K/mm3 (4.0-10.8) H 02/15/18 11:20 RBC 4.41 M/mm3 (3.60-5.2) 02/15/18 11:20 Hgb 11.6 GM/dl (10.7-15.3) 02/15/18 11:20 Hct 34.8 % (32.4-45.2) 02/15/18 11:20 MCV 79.0 fl (80-96) L 02/15/18 11:20 MCHC 33.2 g/dl (32.0-36.0) 02/15/18 11:20 RDW 15.0 % (11.6-15.6) 02/15/18 11:20 Plt Count 215 K/MM3 (134-434) 02/15/18 11:20 Sodium 136 mmol/L (136-145) 02/15/18 11:20 Potassium 4.1 mmol/L (3.5-5.1) 02/15/18 11:20 Chloride 94 mmol/L (98-107) L 02/15/18 11:20 Carbon Dioxide 31 mmol/L (22-28) H 02/15/18 11:20 Anion Gap 11 (8-16) 02/15/18 11:20 BUN 20 mg/dl (7-18) H 02/15/18 11:20 Creatinine 0.9 mg/dl (0.6-1.3) 02/15/18 11:20 Random Glucose 152 mg/dl (74-106) H 02/15/18 11:20 Calcium 9.0 mg/dl (8.4-10.2) 02/15/18 11:[address] scan reviewed IMP:partial sbo PLAN: NPO/IVF/avoid narcotics/NGT was placed after patient had initially refused; obstructive series ordered for Saturday AM. Margarito Castillo MD FACS
[2018-02-15] MEDS ORDERED: SODIUM CHLORIDE 1,000 ML IV SCH (15:30)
[2018-02-15] MEDS: MULTIVITAMINS (DAILY MVI) TABLET (FP) PO SCH (17:53)
[2018-02-15] MEDS: amLODIPine BESYLATE 2.5 MG TABLET (FP) PO SCH (17:53)
[2018-02-15] MEDS: PREGABALIN 50 MG CAPSULE PO SCH ×3 (17:53→21:13)
[2018-02-15] MEDS: CARVEDILOL 3.125 MG TABLET (FP) PO SCH ×2 (17:53→21:12)
[2018-02-15] MEDS: ASPIRIN 325 MG TABLET PO SCH (17:53)
[2018-02-15] MEDS: DULoxetine HCL 30 MG CAPSULE.DR (FP) PO SCH ×2 (21:12)
[2018-02-15] MEDS: ATORVASTATIN CA 10 MG TABLET (FP) PO SCH ×2 (21:13)
[2018-02-16] MEDS ORDERED: HEPARIN NA (PORCINE) 5,000 UNITS/ML 1ML VIAL SQ SCH (06:00)
[2018-02-16] MEDS: INSULIN SLIDING SCALE (NOVOLOG) 1 VIAL SQ SCH ×5 (06:42→22:08)
[2018-02-16] MEDS: PANTOPRAZOLE 40 MG TABLET (FP) PO SCH (08:47)
--- NOTE | 2018-02-16 08:57 | PN ---
Progress Note (short form) - Note Progress Note: Attending Surgeon Feels better; no flatus; no BM VSS AF abdo-soft; NT; less distended and tympamnitic NGT 1100 ( plus what she vomited when inserted) Imaging today pending IMP: sbo PLAN: Continue present tx. d/w patient and family and staff Margarito Castillo MD FACS
[2018-02-16] MEDS: KETOROLAC TROMETHAMINE 30 MG/1 ML VIAL IVPUSH PRN ×3 (09:16→23:04)
[2018-02-16] MEDS: CARVEDILOL 3.125 MG TABLET (FP) PO SCH ×3 (09:24→22:04)
[2018-02-16] MEDS ORDERED: PANTOPRAZOLE SODIUM 40 MG VIAL IVPUSH SCH (10:00)
[2018-02-16] MEDS: MULTIVITAMINS (DAILY MVI) TABLET (FP) PO SCH (11:18)
[2018-02-16] MEDS: SENNOSIDES/DOCUSATE COMBO (SENNA PLUS) TABLET (UD) PO SCH ×2 (11:18→22:04)
[2018-02-16] MEDS: amLODIPine BESYLATE 2.5 MG TABLET (FP) PO SCH (11:18)
[2018-02-16] MEDS: PREGABALIN 50 MG CAPSULE PO SCH ×2 (11:18→22:04)
--- NOTE | 2018-02-16 12:19 | PN ---
Physical Exam: SUBJECTIVE: Patient seen and examined, reports feeling better denies abdominal pain,N/V/D,cp, sob or palpitations. OBJECTIVE: Vital Signs Period Temp Pulse Resp BP Sys/Dia Pulse Ox Last 24 Hr 98.0 F-98.1 F 64-90 18-19 125-140/45-50 92-94 GENERAL: The patient is awake, alert, and fully oriented, in no acute distress. HEAD: Normal with no signs of trauma. EYES: PERRL, extraocular movements intact, sclera anicteric, conjunctiva clear. No ptosis. ENT: Ears normal, - NGT in place , scant amount drainage NECK: Trachea midline, full range of motion, supple. LUNGS: Breath sounds equal, clear to auscultation bilaterally, no wheezes, no crackles, no accessory muscle use. HEART: Regular rate and rhythm, S1, S2 without murmur, rub or gallop. ABDOMEN: Soft, nontender, nondistended, normoactive bowel sounds, no guarding, no rebound, no hepatosplenomegaly, no masses.+ BS EXTREMITIES: 2+ pulses, warm, well-perfused, no edema.- Rt knee dsg intact NEUROLOGICAL: Cranial nerves II through XII grossly intact. Normal speech, gait not observed. PSYCH: Normal mood, normal affect. SKIN: Warm, dry, normal turgor, no rashes or lesions noted Laboratory Results - last 24 hr 02/15/18 02/15/18 02/16/18 12:10 22:24 06:32 POC Glucometer 126 119 111 Active Medications Generic Name Dose Route Start Last Admin Trade Name Freq PRN Reason Stop Dose Admin Al Hydroxide/Mg Hydroxide 30 ml 02/11/18 13:06 02/13/18 23:21 Mylanta Oral Suspension - PO 30 ml Q4H PRN Administration DYSPEPSIA Amlodipine Besylate 2.5 mg 02/12/18 10:00 02/16/18 11:18 Norvasc - PO Not Given DAILY BEN Atorvastatin Calcium 10 mg 02/11/18 22:00 02/15/18 21:13 Lipitor - PO Not Given HS BEN Carvedilol 3.125 mg 02/11/18 22:00 02/16/18 11:18 Coreg - PO Not Given BID BEN Duloxetine HCl 120 mg 02/11/18 22:00 02/15/18 21:12 Cymbalta - PO Not Given HS [facility] Fentanyl 25 mcg 02/11/18 12:42 Sublimaze Injection - IVPUSH [id number] PRN PAIN-PACU ORDER X 4 DOSES ONLY Heparin Sodium (Porcine) 5,000 unit 02/16/18 06:00 02/16/18 06:41 Heparin - SQ 5,000 unit TID [facility] Administration Sodium Chloride 1,000 mls @ 100 mls/hr 02/15/18 15:30 02/15/18 15:30 Normal Saline - IV 100 mls/hr ASDIR [facility] Administration Insulin Aspart 1 vial 02/14/18 11:07 02/16/18 08:46 Novolog Vial Sliding Scale - SQ Not Given ACHS [facility] Protocol Ketorolac Tromethamine 30 mg 02/16/18 09:03 02/16/18 09:16 Toradol Injection - IVPUSH 02/21/18 09:02 30 mg Q6H PRN Administration PAIN LEVEL 4 - 6 Magnesium Hydroxide 30 ml 02/11/18 13:06 02/14/18 07:40 Milk Of Magnesia - PO 30 ml PRN PRN Administration CONSTIPATION Multivitamins/Minerals/Vitamin C 1 tab 02/12/18 10:00 02/16/18 11:18 Tab-A-Vit - PO Not Given DAILY [facility] Ondansetron HCl 4 mg 02/13/18 08:27 02/14/18 15:43 Zofran Odt - SL 4 mg Q6H PRN Administration NAUSEA AND/OR VOMITING Pantoprazole Sodium 40 mg 02/16/18 10:00 02/16/18 09:17 Protonix Iv IVPUSH 40 mg DAILY [facility] Administration Pregabalin 200 mg 02/11/18 22:00 02/16/18 11:18 Lyrica - PO Not Given BID [facility] Promethazine HCl 12.5 mg 02/11/18 12:42 02/13/18 09:30 Phenergan Injection - IVPUSH 12.5 mg Q6H PRN Administration NAUSEA-FOR RESCUE AFTER 15 MIN Senna/Docusate Sodium 2 tablet 02/11/18 22:00 02/16/18 11:18 Pericolace - PO Not Given BID [facility] CT abd: findings suspicious for high grade partial SBO, location and site cannot be determined without complete imaging of the pelvis. 2. Hyperdense right upper pole renal mass. A malignancy cannot be excluded and additional contrast enhanced imaging is now recommended. ASSESSMENT/PLAN: Patient is a 77 year old female with a signficant past medical history of hypertension, HLD, diabetes, GERD, ovarian cancer, lymphoma, SBO and cholecystectomy. She is also has a history of small bowel obstructions in at [facility] which was reported to resolve with medical management. She was admitted to [place] for total knee replacement on 02/11/2018. Now with SBO *Ortho: Total knee replacement Physical therapy following Pain management Lovenox Ortho following - as per ortho Keep on asa 325mg daily for dvt ppx x 6 weeks, if asa is causing vomiting can switch to lovenox. *GI: Acute Nausea/Vomiting, found to have a partial SBO- improved CT noted above Repeat Abd xray - no obstruction -NGT removed started on sips of water on IVF Surgery following wbc trending down Card: Hypertension, chronic-Bp stable Monitor BP while NPO Hydralazine PRN for HTN Endo: Diabetes- BS stable BGMs q6 while NPO Oncology/Renal: Hx of ovarian cancer, Lymphoma and CT shows renal mass Renal MRI with contrast once acute symptoms resolve DVT:Lovenox Disposition: rehab once medically stable. Visit type - Emergency Visit Emergency Visit: Yes ED Registration Date: 02/11/18 Care time: The patient presented to the Emergency Department on the above date and was hospitalized for further evaluation of their emergent condition. - New Patient This patient is new to me today: Yes Date on this admission: 02/16/18 - Critical Care Critical Care patient: No
[2018-02-16] MEDS ORDERED: hydrALAZINE HCL 20 MG/ML VIAL IVPUSH PRN (12:34)
[2018-02-16] MEDS ORDERED: SODIUM CHLORIDE 1,000 ML IV SCH (14:33)
[2018-02-16] MEDS ORDERED: hydrALAZINE HCL 20 MG/ML VIAL IVPB PRN (15:04)
[2018-02-16] MEDS: ENOXAPARIN NA (PORCINE) 40 MG/0.4 ML DISP.SYRIN SQ SCH (15:37)
[2018-02-16 18:51] VITALS: TEMP 98.2
[2018-02-16] MEDS: ATORVASTATIN CA 10 MG TABLET (FP) PO SCH (22:04)
[2018-02-16] MEDS: DULoxetine HCL 30 MG CAPSULE.DR (FP) PO SCH (22:04)
--- NOTE | 2018-02-17 07:54 | PN ---
Progress Note (short form) - Note Progress Note: POD #6 s/p right celso tkr. +bm (solid) yesterday. ngt removed and started on clears with instructions to advance as tolerated. Afebrile. VSS Gen: alert. nad ABD: soft. NT. ND. +bs x4 RLE: dressing c/d/i Problem List - Problems (1) Ileus Assessment/Plan: Ileus resolved (nost likely narcotic induced). Diet as tolerated. From a General Surgery standpoint, patient can be discharged home when cleared by Ortho. On behalf of Dr. Castillo, thank you for the opportunity to participate in your patient's care. Code(s): K56.7 - ILEUS, UNSPECIFIED
--- NOTE | 2018-02-17 08:33 | PN ---
Progress Note (short form) - Note Progress Note: Ortho Pt seen and examined s/p right celso tkr. developed partial SBO. NGT removed started on clear liquid Selected Entries 02/17/18 06:00 Temperature 98.2 F Pulse Rate 74 Respiratory 18 Rate Blood Pressure 144/57 Laboratory Tests 02/15/18 11:20 WBC 13.3 H Hgb 11.6 Hct 34.8 Plt Count 215 dressing c/d/i, calf soft, nt rom 0-50, nvi a/p diet advanced once tolerating PO can d/c to rehab PT wbat dvt ppx d/c planning
[2018-02-17] MEDS: PREGABALIN 50 MG CAPSULE PO SCH (10:33)
[2018-02-17] MEDS: ENOXAPARIN NA (PORCINE) 40 MG/0.4 ML DISP.SYRIN SQ SCH (10:34)
[2018-02-17] MEDS: CARVEDILOL 3.125 MG TABLET (FP) PO SCH (10:34)
[2018-02-17] MEDS: amLODIPine BESYLATE 2.5 MG TABLET (FP) PO SCH (10:34)
[2018-02-17] MEDS: SENNOSIDES/DOCUSATE COMBO (SENNA PLUS) TABLET (UD) PO SCH (10:35)
[2018-02-17] MEDS: MULTIVITAMINS (DAILY MVI) TABLET (FP) PO SCH (10:39)
--- NOTE | 2018-02-17 12:35 | PN ---
Physical Exam: SUBJECTIVE: Patient seen and examined patient exam is regular nursing station with walker in physical therapy tolerating full liquid diet denies any nausea vomiting had large bowel movement this morning. OBJECTIVE:patient is a 77-year-old female,with a past medical history of hypertension, hyperlipidemia, DM,GERD, ovarian CA, lymphoma, small bowel obstruction October 2017 8 day hospitalization at [facility] resolved with medical management, and depression. Patient is S/P right total knee replacement postoperative day 4 spinal anesthesia. Vital Signs Period Temp Pulse Resp BP Sys/Dia Pulse Ox Last 24 Hr 98.0 F-98.2 F 72-74 18-18 130-149/49-74 98-98 GENERAL: Awake, alert, and fully oriented, in no acute distress. HEAD: Normal with no signs of trauma. EYES: Pupils equal, round and reactive to light, extraocular movements intact, sclera anicteric, conjunctiva clear. No lid lag. EARS, NOSE, THROAT: Ears normal, nares patent, oropharynx clear without exudates. Moist mucous membranes. NECK: Normal range of motion, supple without lymphadenopathy, JVD, or masses. LUNGS: Breath sounds equal, clear to auscultation bilaterally. No wheezes, and no crackles. No accessory muscle use. HEART: Regular rate and rhythm, normal S1 and S2 without murmur, rub or gallop. ABDOMEN: Soft, nontender, not distended, normoactive bowel sounds, no guarding, no rebound, no masses. No hepatomegaly or splenomegaly. MUSCULOSKELETAL: Normal range of motion at all joints. No bony deformities or tenderness. No CVA tenderness. UPPER EXTREMITIES: 2+ pulses, warm, well-perfused. No cyanosis. No clubbing. Cap refill <2 seconds. No peripheral edema. LOWER EXTREMITIES: 2+ pulses, warm, well-perfused. No calf tenderness. No peripheral edema. RIGHT LOWER EXTREMITY: dressing CDI less than 3 second capillary refill +4 pedal pulse NEUROLOGICAL: Cranial nerves II-XII intact. Normal speech. Normal gait. PSYCHIATRIC: Cooperative. Good eye contact. Appropriate mood and affect. SKIN: Warm, dry, normal turgor, no rashes or lesions noted. Laboratory Results - last 24 hr 02/16/18 02/16/18 02/17/18 16:52 22:07 06:29 POC Glucometer 88 89 80 Active Medications Generic Name Dose Route Start Last Admin Trade Name Freq PRN Reason Stop Dose Admin Al Hydroxide/Mg Hydroxide 30 ml 02/11/18 13:06 02/13/18 23:21 Mylanta Oral Suspension - PO 30 ml Q4H PRN Administration DYSPEPSIA Amlodipine Besylate 2.5 mg 02/12/18 10:00 02/17/18 10:34 Norvasc - PO 2.5 mg DAILY BEN Administration Atorvastatin Calcium 10 mg 02/11/18 22:00 02/16/18 22:04 Lipitor - PO 10 mg HS BEN Administration Carvedilol 3.125 mg 02/11/18 22:00 02/17/18 10:34 Coreg - PO 3.125 mg BID BEN Administration Duloxetine HCl 120 mg 02/11/18 22:00 02/16/18 22:04 Cymbalta - PO 120 mg HS BEN Administration Enoxaparin Sodium 40 mg 02/16/18 15:15 02/17/18 10:34 Lovenox - SQ 40 mg DAILY BEN Administration Fentanyl 25 mcg 02/11/18 12:42 Sublimaze Injection - IVPUSH [id number] PRN PAIN-PACU ORDER X 4 DOSES ONLY Hydralazine HCl 10 mg 02/16/18 15:04 Apresoline Injection - IVPB Q6H PRN HYPERTENSION Sodium Chloride 1,000 mls @ 75 mls/hr 02/16/18 14:33 02/16/18 15:36 Normal Saline - IV 75 mls/hr ASDIR BEN Administration Insulin Aspart 1 vial 02/14/18 11:07 02/16/18 22:08 Novolog Vial Sliding Scale - SQ Not Given ACHS [facility] Protocol Ketorolac Tromethamine 30 mg 02/16/18 09:03 02/16/18 23:04 Toradol Injection - IVPUSH 02/21/18 09:02 30 mg Q6H PRN Administration PAIN LEVEL 4 - 6 Magnesium Hydroxide 30 ml 02/11/18 13:06 02/14/18 07:40 Milk Of Magnesia - PO 30 ml PRN PRN Administration CONSTIPATION Multivitamins/Minerals/Vitamin C 1 tab 02/12/18 10:00 02/17/18 10:39 Tab-A-Vit - PO 1 tab DAILY BEN Administration Ondansetron HCl 4 mg 02/13/18 08:27 02/14/18 15:43 Zofran Odt - SL 4 mg Q6H PRN Administration NAUSEA AND/OR VOMITING Pantoprazole Sodium 40 mg 02/16/18 10:00 02/16/18 09:17 Protonix Iv IVPUSH 40 mg DAILY BEN Administration Pregabalin 200 mg 02/11/18 22:00 02/17/18 10:33 Lyrica - PO 200 mg BID BEN Administration Promethazine HCl 12.5 mg 02/11/18 12:42 02/13/18 09:30 Phenergan Injection - IVPUSH 12.5 mg Q6H PRN Administration NAUSEA-FOR RESCUE AFTER 15 MIN Senna/Docusate Sodium 2 tablet 02/11/18 22:00 02/17/18 10:35 Pericolace - PO 2 tablet BID BEN Administration imaging CT abd: findings suspicious for high grade partial SBO, location and site cannot be determined without complete imaging of the pelvis. 2. Hyperdense right upper pole renal mass. A malignancy cannot be excluded and additional contrast enhanced imaging is now recommended Abdominal x-ray: no sign of obstruction ASSESSMENT/PLAN: 1) Ortho: Total knee replacement Physical therapy following Pain management Lovenox Ortho following - as per ortho Keep on asa 325mg daily for dvt ppx x 6 weeks, if asa is causing vomiting can switch to lovenox. 2) GI: partial small bowel obstruction - Patient is tolerating liquid diet positive bowel sounds noted on exam positive bowel movement and flatus - surgery following - wbc trending down 3) Card: Hypertension - continue coreg and hydralazine - b/p at goal 4) Endo: Diabetes- BS stable BGMs q6 while 5) Oncology/Renal: Hx of ovarian cancer, Lymphoma and CT shows renal mass Renal MRI with contrast once acute symptoms resolve as outpatient DVT:Lovenox Disposition: rehab once medically stable. Visit type - Emergency Visit Emergency Visit: No - New Patient This patient is new to me today: No - Critical Care Critical Care patient: No - Discharge Referral Referred to [facility] Med P.C.: No
[2018-02-17 14:22] VITALS: BP 143/46; PULSE 66
--- NOTE | 2018-02-17 14:51 | DS ---
Physical Examination Vital Signs: Vital Signs Temperature 98.2 F 02/17/18 14:00 Pulse Rate 66 02/17/18 14:00 Respiratory Rate 18 02/17/18 14:00 Blood Pressure 143/46 02/17/18 14:00 O2 Sat by Pulse Oximetry (%) 98 02/17/18 14:00 Labs: CBC, BMP 02/15/18 11:20 02/15/18 11:20 Discharge Summary Reason For Visit: OSTEOARTHRITIS Current Active Problems Ileus (Acute) Procedures: Principal: right tkr Hospital Course: admitted for elective right celso tkr, developed partial SBO, was seen by Dr. Castillo- NGT placed and pt improved, tolerating diet and having BM, stable for d/ c to rehab Condition: Good - Instructions Diet, Activity, Other Instructions: Post-op Instructions-Total Knee Replacement Call the office for a follow-up appointment in 1 week - [phone] Aspirin 325mg daily for 6 weeks. Pain medication was sent into your pharmacy. Apply Graduated Compression Stockings (TEDs) to both lower extremities- remove daily for hygiene ONLY Apply Sequential Compression Device (SCDs) to both Lower extremities remove for PT and hygiene ONLY Apply cold packs to affected area for 15 minutes every 2 hours. Physical Therapist will come to your home for the first 5 days. You will be set up with outpatient PT at your first post-operative visit. Patient may ambulate as tolerated-encourage self care (at least every 2-3 hours while awake) with walker or cane Maintain Aquacel (waterproof) dressing to operative wound (will be removed by surgeon at first office visit) Shower with Aquacel dressing in place-if Aquacel integrity compromised, remove and apply dry sterile dressing and notify Orthopedist. DO NOT SHOWER unless Orthopedists approves without Aquacel dressing CONTACT THE OFFICE FOR ANY CHANGE IN YOUR CONDITION (for example-fever greater than 102 degrees, excessive bleeding from operative site, purulent drainage, severe swelling or pain) GO TO THE EMERGENCY ROOM IF THERE IS A MEDICAL EMERGENCY Knee Precautions: * Keep a rolled towel under affected heel while in bed or chair (to keep knee in extension) * Keep affected leg elevated except during mealtimes * DO NOT PLACE PILLOW UNDER AFFECTED KNEE * If you have any questions, please do not hesitate to call the office - . Referrals: Tong Sibley MD [Staff Physician] - [facility] - Home Medications Comprehensive Discharge Medication List: Ambulatory Orders Amlodipine Besylate 2.5 mg PO DAILY 02/04/18 Atorvastatin Ca [Lipitor] 10 mg PO HS 02/04/18 Carvedilol 3.125 mg PO BID 02/04/18 Duloxetine HCl [Cymbalta -] 120 mg PO HS 02/04/18 Metformin HCl [Metformin HCl ER] 500 mg PO DAILY 02/04/18 Omeprazole 40 mg PO DAILY 02/04/18 Pregabalin [Lyrica] 200 mg PO BID 02/04/18 Sitagliptin Phosphate [Januvia] 25 mg PO DAILY 02/04/18 Aspirin [ASA -] 325 mg PO DAILY@0800 tablet 02/11/18
[2018-02-18] MEDS ORDERED: PANTOPRAZOLE 40 MG TABLET (FP) PO SCH (10:00)
== END 2018-02-17 16:45 | DRG 470 ==
LOC: FM/S 08:27
PROVIDERS: ADMIT Orthopaedic Surgery; ATTEND Orthopaedic Surgery
PROC: 0SRC0J9 Replacement of Right Knee Joint with Synthetic Substitute, Cemented, Open Approach (ICD-10-PCS; principal; 2018-02-11 11:15)
PROC: 0D9670Z Drainage of Stomach with Drainage Device, Via Natural or Artificial Opening (ICD-10-PCS; 2018-02-16)
DX: M17.11 Unilateral primary osteoarthritis, right knee (principal); K91.31 Postprocedural partial intestinal obstruction; Z88.0 Allergy status to penicillin; I10 Essential (primary) hypertension; E78.5 Hyperlipidemia, unspecified; E11.9 Type 2 diabetes mellitus without complications; K21.9 Gastro-esophageal reflux disease without esophagitis; Z79.84 Long term (current) use of oral hypoglycemic drugs; Z85.43 Personal history of malignant neoplasm of ovary; I25.10 Atherosclerotic heart disease of native coronary artery without angina pectoris; Y83.8 Other surgical procedures as the cause of abnormal reaction of the patient, or of later complication, without mention of misadventure at the time of the procedure; Z85.72 Personal history of non-Hodgkin lymphomas; N28.9 Disorder of kidney and ureter, unspecified
CPT/HCPCS: 36415; 73560-TC-RT-FY; 74018-TC-FY; 74019-TC-FY; 74150-TC; 80053; 82962; 83735; 85025; 85027; 88304-TC; 88311-TC; 94010; 94760; 97116-GP; 97162-GP; J1644; J7030; Q0162

== ENCOUNTER 2019-03-03 05:59 | Inpatient (IN) | payer OTHER ==
[2019-02-25 14:10] VITALS: BMI 26.3
[2019-03-03] MEDS ORDERED: oxyCODONE HCL 10 MG SUSTAINED ACTING TABLET PO ONE (06:27)
[2019-03-03] MEDS ORDERED: GABAPENTIN 300 MG CAPSULE (FP) PO ONE (06:27)
[2019-03-03] MEDS ORDERED: CELECOXIB 200 MG CAPSULE PO ONE (06:27)
[2019-03-03] MEDS ORDERED: TRANEXAMIC ACID 1000 MG/10 ML VIAL IVPUSH ONE (06:27)
[2019-03-03] MEDS ORDERED: SODIUM CHLORIDE 0.9% P/F 10 ML VIAL IJ ONE (06:55)
[2019-03-03] MEDS ORDERED: BUPIVACAINE LIPOSOME/PF (EXPAREL) 266 MG/20 ML VIAL ONE (06:55)
[2019-03-03] MEDS ORDERED: MIDAZOLAM HCL 2 MG/2 ML SINGLE DOSE VIAL ONE (06:55)
[2019-03-03] MEDS ORDERED: ceFAZolin SODIUM 1 GM VIAL ONE ×2 (07:07→08:01)
[2019-03-03] MEDS ORDERED: VANCOMYCIN 1,000 MG VIAL (RESTRICTED TO ID ONLY) ONE (07:07)
--- NOTE | 2019-03-03 07:34 | HP ---
Satellite [facility] - Chief Complaint Chief Complaint: left knee pain - Past Medical History Allergies/Adverse Reactions: Allergies Allergy/AdvReac Type Severity Reaction Status Date / Time Penicillins Allergy Severe Rash Verified 02/25/19 14:01 - Current Medications Current Medications: Home Medications Medication Instructions Recorded Amlodipine Besylate 2.5 mg PO DAILY 02/04/18 Atorvastatin Ca [Lipitor] 10 mg PO HS 02/04/18 Carvedilol 3.125 mg PO BID 02/04/18 Duloxetine HCl [Cymbalta -] 60 mg PO BID 02/04/18 Omeprazole 40 mg PO DAILY 02/04/18 Pregabalin [Lyrica] 200 mg PO DAILY 02/04/18 Sitagliptin Phosphate [Januvia] 25 mg PO DAILY 02/04/18 metFORMIN HCL [Metformin ER 500 mg PO DAILY 02/04/18 Osmotic] Nitrofurantoin Macrocrystal 100 mg PO BID 02/25/19 [Nitrofurantoin] Calcium Carbonate [Calcium] 500 mg PO DAILY 03/03/19 Multivitamins [Tab-A-Vit -] 1 tab PO DAILY 03/03/19 Satellite Physical Exam - Physical Examination Vital Signs: Vital Signs Period Temp Pulse Resp BP Sys/Dia Pulse Ox Last 24 Hr 98.5 F 62 18 150/74 General Appearance: Well Nourished, Well Developed, Alert & Oriented x3 ENT: Clear Lung: Normal air movement Heart: Regular rate & rhythm Extremities: Other (left knee- + swelling, + ttp, decr rom, nvi, xrays show grade 4 tricompartmental djd) Neurological: Intact, Alert, Oriented Satellite Impression/Plan - Impression/Plan Impression: left knee djd Operative Procedure: left cleso tkr Date to be Performed: 03/03/19
[2019-03-03] MEDS ORDERED: MAGNESIUM HYDROX 2400MG/30ML ORAL SUSPENSION 30 ML CUP PO PRN (07:38)
[2019-03-03] MEDS ORDERED: ONDANSETRON 4 MG/2 ML VIAL IVPUSH PRN (07:38)
[2019-03-03] MEDS ORDERED: MAG HYDROX/AL HYDROX/SIMETH 30 ML UNIT-DOSE CUP PO PRN (07:38)
[2019-03-03] MEDS ORDERED: PROPOFOL 20 ML ONE (07:45)
[2019-03-03] MEDS ORDERED: LACTATED RINGERS SOLUTION 1,000 ML IV SCH (07:45)
[2019-03-03] MEDS ORDERED: SUCCINYLCHOLINE CHLORIDE 200 MG/10 ML VIAL ONE (07:45)
[2019-03-03] MEDS ORDERED: CEFAZOLIN 2 GM/D5W 2 GM/50 ML ML IVPB SCH (08:00)
[2019-03-03] MEDS ORDERED: TRANEXAMIC ACID 1000 MG/10 ML VIAL ONE ×2 (08:01→08:58)
[2019-03-03] MEDS ORDERED: ONDANSETRON 4 MG/2 ML VIAL ONE (08:07)
[2019-03-03] MEDS ORDERED: DEXAMETHASONE SOD PHOSPHATE 4 MG/1 ML VIAL ONE (08:07)
[2019-03-03] MEDS ORDERED: VANCOMYCIN 1,000 MG VIAL (RESTRICTED TO ID ONLY) IVPB ONE (09:16)
[2019-03-03] MEDS ORDERED: oxyCODONE HCL 5 MG TABLET PO PRN (09:18)
--- NOTE | 2019-03-03 09:32 | OP ---
Operative Note - Note: Operative Date: 03/03/19 (jacoby) Pre-Operative Diagnosis: left knee djd Operation: left celso tkr Post-Operative Diagnosis: Same as Pre-op Surgeon: Tong Sibley Nursing Consultant: Marky Soto Anesthesiologist/INTERCHANGE AGENT: Jersey Escobar Anesthesia: Spinal, Local Specimens Removed: bone fragments Estimated Blood Loss (mls): 100 Operative Report Dictated: Yes
[2019-03-03] MEDS ORDERED: DULoxetine HCL 60 MG CAPSULE.DR PO SCH (10:00)
[2019-03-03] MEDS ORDERED: MULTIVITAMINS (DAILY MVI) TABLET (FP) PO SCH (10:00)
[2019-03-03] MEDS: ACETAMINOPHEN 325 MG TABLET (FP) PO SCH ×3 (10:15→21:47)
--- NOTE | 2019-03-03 15:11 | CONSULT ---
Consult Consult Specialty:: IM Reason for Consultation:: post-op medical management - History of Present Illness Chief Complaint: left knee pain History of Present Illness: 78 yo lady with lsft knee DJD came in for left knee TKR. denies chest pain, palpitations, nausea, vomiting, diarrhea, fever or recent travel. - History Source History Provided By: Patient - Past Medical History Cardio/Vascular: Yes: HTN ...: No Endocrine: Yes: Diabetes Mellitus - Alcohol/Substance Use Hx Alcohol Use: No - Smoking History Smoking history: Never smoked Have you smoked in the past 12 months: No Home Medications - Allergies Allergies/Adverse Reactions: Allergies Allergy/AdvReac Type Severity Reaction Status Date / Time Penicillins Allergy Severe Rash Verified 02/25/19 14:01 - Home Medications Home Medications: Ambulatory Orders Amlodipine Besylate 2.5 mg PO DAILY 02/04/18 Atorvastatin Ca [Lipitor] 10 mg PO HS 02/04/18 Carvedilol 3.125 mg PO BID 02/04/18 Duloxetine HCl [Cymbalta -] 60 mg PO BID 02/04/18 Omeprazole 40 mg PO DAILY 02/04/18 Pregabalin [Lyrica] 200 mg PO DAILY 02/04/18 Sitagliptin Phosphate [Januvia] 25 mg PO DAILY 02/04/18 metFORMIN HCL [Metformin ER Osmotic] 500 mg PO DAILY 02/04/18 Nitrofurantoin Macrocrystal [Nitrofurantoin] 100 mg PO BID 02/25/19 Aspirin [ASA -] 325 mg PO DAILY@0800 tablet 03/03/19 Calcium Carbonate [Calcium] 500 mg PO DAILY 03/03/19 Multivitamins [Multivit ([facility] Formulary)] 1 tab PO DAILY 03/03/19 Oxycodone HCl/Acetaminophen [Percocet 5-325 mg Tablet -] 1 - 2 tab PO Q6H #50 tab MDD 8 03/03/19 Review of Systems - Review of Systems Constitutional: reports: No Symptoms Eyes: reports: No Symptoms HENT: reports: No Symptoms Neck: reports: No Symptoms Cardiovascular: reports: No Symptoms Respiratory: reports: No Symptoms Gastrointestinal: reports: No Symptoms Genitourinary: reports: No Symptoms Musculoskeletal: reports: Joint Pain, Joint Swelling Integumentary: reports: No Symptoms Neurological: reports: No Symptoms Endocrine: reports: No Symptoms Hematology/Lymphatic: reports: No Symptoms Psychiatric: reports: No Symptoms Pain Intensity: 4 Physical Exam Vital Signs: Vital Signs Temperature 97.5 F L 03/03/19 11:38 Pulse Rate 66 03/03/19 11:38 Respiratory Rate 18 03/03/19 11:38 Blood Pressure 158/60 03/03/19 11:38 O2 Sat by Pulse Oximetry (%) 98 03/03/19 11:38 Constitutional: Yes: Well Nourished, No Distress, Calm Eyes: Yes: WNL HENT: Yes: WNL Neck: Yes: WNL Cardiovascular: Yes: WNL Respiratory: Yes: WNL Gastrointestinal: Yes: WNL ...Rectal Exam: Yes: Deferred Renal/: Yes: WNL Musculoskeletal: Yes: Joint Stiffness, Joint Swelling Extremities: Yes: WNL Edema: No Assessment/Plan 78 yo lady with left knee OA left TKR. cont pain management. incentive spirometry. -HTN: cont amlodipine, coreg -CAD: on aspirin, lipitor -ID: empirically covered with cefazolin. -GI, DVT prophylaxis. -major anxiety and depression: on cymbalta -type 2 DM: on metformin, RISS, januvia -diabetic peripheral neuropathy: controlled with lyrica -cont laxatives for opioid induced constipation awaiting labs -DC plan within 24-48 hours if stable.
[2019-03-03] MEDS: NITROFURANTOIN MACROCRYSTAL 50 MG CAPSULE (FP) PO SCH ×3 (15:20→21:49)
[2019-03-03] MEDS: CEFAZOLIN 2 GM/D5W 2 GM/50 ML ML IVPB SCH (15:21)
[2019-03-03] MEDS: oxyCODONE HCL 5 MG TABLET PO PRN ×2 (15:22→21:46)
[2019-03-03] MEDS ORDERED: INSULIN (NOVOLOG) ASPART 100 UNITS/ML 10ML VIAL ONE (16:44)
[2019-03-03] MEDS: INSULIN SLIDING SCALE (NOVOLOG) 1 VIAL SQ SCH ×2 (16:47→23:03)
[2019-03-03] MEDS ORDERED: DULoxetine HCL 30 MG CAPSULE.DR PO ONE (21:19)
[2019-03-03] MEDS: CARVEDILOL 3.125 MG TABLET (FP) PO SCH (21:48)
[2019-03-03] MEDS: SENNOSIDES/DOCUSATE COMBO (SENNA PLUS) TABLET (UD) PO SCH (21:48)
[2019-03-03] MEDS: ATORVASTATIN CA 10 MG TABLET (FP) PO SCH (21:50)
--- NOTE | 2019-03-03 21:59 | SPEC ---
DATE OF OPERATION: 03/03/2019 PREOPERATIVE DIAGNOSIS: Degenerative joint disease, right knee. POSTOPERATIVE DIAGNOSIS: Degenerative joint disease, right knee. PROCEDURE: Right total knee replacement with robotic-assisted navigation (Makoplasty). SURGICAL ATTENDING: Tong Sibley M.D. ASSISTANT AUDITOR: Jimena White ANESTHESIA: Regional and spinal. CLOSURE: A cemented Triathlon knee system with a 3 femur, 3 tibia, 9 polyethylene, 32 patella, number 1 Vicryl fascia, 0 and 2-0 subcutaneous, 3-0 Monocryl subcuticular with skin glue for skin, 4-0 undyed Vicryl for pin sites. ESTIMATED BLOOD LOSS: Less than 100 mL. COMPLICATIONS: None. CONDITION: To recovery room in stable condition. DESCRIPTION OF OPERATIVE PROCEDURE: Patient was taken to the operating room on March 03, 2019. Regional and general anesthesia was administered by the anesthesiologist. IV Kefzol and TXA were administered by the anesthesiologist. Well-padded pneumatic tourniquet was placed on the proximal thigh. The right lower extremity was prepped and draped in the usual sterile fashion. The leg was exsanguinated with an Esmarch bandage, and tourniquet was inflated to 275 mmHg. A 12 to 15-cm longitudinal midline incision was incised while centered over the patella. The dissection was carried down to the level of the extensor mechanism with sufficient flaps made to adequately perform the procedure. A medial parapatellar arthrotomy was then performed. We made a cuff of tissue on the patella for later closure. The patella was inverted, the knee was flexed up. The fat pad was excised. The subperiosteal dissection was on the anteromedial proximal tibia around towards the direction of the MCL. The ACL and the PCL were transected and debrided. The meniscal remnants of the medial and lateral meniscus were debrided and removed. This allowed the knee to be able to "be brought forward." The checkpoints were malleted into the tibia and into the femur. Two threaded pins were drilled anteroposteriorly proximal to the knee through the previous incision, through the anterior cortex, then just engaging the posterior cortex. To these pins was assembled the femoral navigation array. One handbreadth below the tibial tubercle, 2 stab incisions were used to drill 2 threaded pins in parallel fashion into the tibia, again through the anterior cortex and just engaging the posterior cortex. To these pins was fastened the tibial arrays. The knee was then registered with the navigation device with center of rotation of the hip, medial and lateral malleoli, both checkpoints, and multiple points on both the femur and the tibia to ensure excellent registration. The navigation device was directed off the "top of the bubbles" on both the femur and the tibia. The navigation passed within less than 0.5 mm to plan. The knee was then thoroughly inspected to remove all osteophytes both medially, laterally, and on the femur and the tibia, and whatever osteophytes were available for dissection. The knee was then taken to extension and to flexion, and stressed in both varus and valgus to assess flexion gaps. The virtual position of the components on the navigation device were then manipulated to optimize the position and to ensure equal gaps in both flexion and extension, and both medially and laterally. The robot was then brought into the field and was registered. The cuts were then made both on the femur and on the tibia as to plan. All osteophytes posteriorly were then removed as well. The gaps were then measured again in flexion and extension to be equal in both flexion and extension and medial and laterally. The femoral notch was then made, as we were doing a posterior stabilizing component, with the appropriate sized box. Trial reduction of the femur achieved excellent [id number] fit. A tibial baseplate of appropriate polyethylene thickness was "floated in the knee." It was ensured to be in the excellent position by navigation devices and was pinned in place. The knee was taken through a range of motion, and found to have excellent stability throughout flexion and extension. The patella was calibrated for thickness and osteotomized down to the appropriate level. The appropriate lollipop was used to drill the lug holes in the patella and the trial button was applied. The knee was taken through a range of motion and found to have excellent tracking of the patella, and patella from full extension to full flexion. Trial components were removed, the keel was punched and drilled, and a sclerotic bone on the tibia was drilled to help with cement interdigitation. The knee was thoroughly irrigated with the pulse antibiotic performance improvement manager. The real components were then cemented in using monitored arrangement cement techniques with antibiotic cement, and pressurization and extension. After the cement was hardened, the knee was thoroughly inspected to remove any extra cement. The real polyethylene component was then clipped into place. Range of motion, stability, and tracking were as described earlier. The checkpoints and the pins were removed. The knee was thoroughly irrigated with antibiotic irrigation. Vancomycin powder was placed into the knee for antibiotic prophylaxis. The medial parapatellar arthrotomy was then closed using number 1 Vicryl interrupted suture. After closure of the deep layer, the knee was taken through a range of motion, and found to have excellent stability of the patella with no dislocation and no undue tension on the repair. The subcutaneous was pulse antibiotic irrigated, and was then closed with 2-0 Vicryl, 3-0 Monocryl subcuticular with the skin glue for the skin. The distal tibial pin site was irrigated thoroughly as well and then closed with 4-0 undyed Vicryl. A sterile Aquacel dressing was applied, followed by a Matthews dressing. Tourniquet was deflated. Total tourniquet time was approximately 75 minutes. No complications. Patient was awakened from anesthesia and transferred to recovery room in stable condition. Postoperative x-rays revealed excellent position of the components. Brady HERNANDEZ/[id number]
[2019-03-04] MEDS: CEFAZOLIN 2 GM/D5W 2 GM/50 ML ML IVPB SCH (00:10)
[2019-03-04] MEDS ORDERED: diphenhydrAMINE HCL 50 MG CAPSULE PO ONE (01:15)
[2019-03-04] MEDS: ACETAMINOPHEN 325 MG TABLET (FP) PO SCH ×4 (06:45→22:20)
[2019-03-04] MEDS: INSULIN SLIDING SCALE (NOVOLOG) 1 VIAL SQ SCH ×4 (06:45→22:20)
[2019-03-04] MEDS: sitaGLIPtin PHOSPHATE 25 MG TABLET (FP) PO SCH (06:46)
[2019-03-04] MEDS: ASPIRIN 325 MG TABLET PO SCH (08:03)
[2019-03-04 08:18] LABS: HEMATOCRIT 28.3 % (32.4-45.2); HEMOGLOBIN 9.4 GM/dl (10.7-15.3); MCH 27.2 pg (25.7-33.7); MCHC 33.2 g/dl (32.0-36.0); MEAN CELL VOLUME 81.9 fl (80-96); MEAN PLT VOLUME 10.6 fl (7.5-11.1); PLATELET COUNT 186 K/MM3 (134-434); RBC 3.45 M/mm3 (3.60-5.2); RDW 14.3 % (11.6-15.6); WHITE BLOOD COUNT 10.9 K/mm3 (4.0-10.8)
--- NOTE | 2019-03-04 09:19 | PN ---
Progress Note (short form) - Note Progress Note: Ortho Pt seen and examined s/p left celso tkr pod #1 Selected Entries 03/04/19 09:06 Temperature 97.7 F Pulse Rate 71 Respiratory 18 Rate Blood Pressure 136/54 L Laboratory Tests 03/04/19 07:28 WBC 10.9 H Hgb 9.4 L Hct 28.3 L D Plt Count 186 dressing c/d/i, calf soft, nt rom 0-40, nvi a/p PT dvt ppx pain control d/c home tomorrow if stable
[2019-03-04] MEDS: DULoxetine HCL 30 MG CAPSULE.DR PO SCH ×2 (10:39→22:21)
[2019-03-04] MEDS: NITROFURANTOIN MACROCRYSTAL 50 MG CAPSULE (FP) PO SCH ×4 (10:42→21:30)
[2019-03-04] MEDS: CARVEDILOL 3.125 MG TABLET (FP) PO SCH ×2 (10:42→22:19)
[2019-03-04] MEDS: PREGABALIN 50 MG CAPSULE PO SCH (10:42)
[2019-03-04] MEDS: amLODIPine BESYLATE 5 MG TABLET (FP) PO SCH (10:43)
[2019-03-04] MEDS: SENNOSIDES/DOCUSATE COMBO (SENNA PLUS) TABLET (UD) PO SCH ×2 (10:43→22:20)
[2019-03-04] MEDS: MULTIVITAMINS (DAILY MVI) TABLET (FP) PO SCH (10:44)
[2019-03-04] MEDS: PANTOPRAZOLE 40 MG TABLET (FP) PO SCH (10:44)
--- NOTE | 2019-03-04 10:51 | PN ---
Progress Note, Physician Chief Complaint: left knee pain History of Present Illness: lafe knee DJD S/P TKR denies chest pain, SOB, palpitations, nausea, vomting, diarrhea - Current Medication List Current Medications: Active Medications Acetaminophen (Tylenol -) 650 mg PO Q6H [facility] Stop: 03/06/19 09:29 Last Admin: 03/04/19 10:40 Dose: 650 mg Al Hydroxide/Mg Hydroxide (Mylanta Oral Suspension -) 30 ml PO Q4H PRN PRN Reason: DYSPEPSIA Amlodipine Besylate (Norvasc -) 2.5 mg PO DAILY [facility] Last Admin: 03/04/19 10:43 Dose: 2.5 mg Aspirin (Asa -) 325 mg PO DAILY@0800 [facility] Last Admin: 03/04/19 08:03 Dose: 325 mg Atorvastatin Calcium (Lipitor -) 10 mg PO HS [facility] Last Admin: 03/03/19 21:50 Dose: 10 mg Carvedilol (Coreg -) 3.125 mg PO BID [facility] Last Admin: 03/04/19 10:42 Dose: 3.125 mg Duloxetine HCl (Cymbalta -) 60 mg PO BID [facility] Last Admin: 03/04/19 10:39 Dose: 60 mg Insulin Aspart (Novolog Vial Sliding Scale -) 1 vial SQ ACHS [facility]; Protocol Last Admin: 03/04/19 06:45 Dose: Not Given Magnesium Hydroxide (Milk Of Magnesia -) 30 ml PO PRN PRN PRN Reason: CONSTIPATION Metformin HCl (Glucophage Xr -) 500 mg PO 0700 [facility] Last Admin: 03/04/19 06:46 Dose: Not Given Multivitamins/Minerals/Vitamin C (Tab-A-Vit -) 1 tab PO DAILY [facility] Last Admin: 03/04/19 10:44 Dose: 1 tab Nitrofurantoin Macrocrystals (Macrodantin -) 50 mg PO QID [facility] Last Admin: 03/04/19 10:42 Dose: 50 mg Ondansetron HCl (Zofran Injection) 4 mg IVPUSH Q6H PRN PRN Reason: NAUSEA Oxycodone HCl (Roxicodone -) 5 mg PO Q3H PRN PRN Reason: PAIN LEVEL 1-5 Oxycodone HCl (Roxicodone -) 10 mg PO Q3H PRN PRN Reason: PAIN LEVEL 6-10 Last Admin: 03/03/19 21:46 Dose: 10 mg Pantoprazole Sodium (Protonix -) 40 mg PO DAILY [facility] Last Admin: 03/04/19 10:44 Dose: 40 mg Pregabalin (Lyrica -) 200 mg PO DAILY [facility] Last Admin: 03/04/19 10:42 Dose: 200 mg Senna/Docusate Sodium (Pericolace -) 2 tablet PO BID [facility] Last Admin: 03/04/19 10:43 Dose: 2 tablet Sitagliptin Phosphate (Januvia -) 25 mg PO 0700 [facility] Last Admin: 03/04/19 06:46 Dose: Not Given - Objective Vital Signs: Vital Signs Temperature 97.7 F 03/04/19 09:06 Pulse Rate 71 03/04/19 09:06 Respiratory Rate 18 03/04/19 09:06 Blood Pressure 136/54 L 03/04/19 09:06 O2 Sat by Pulse Oximetry (%) 94 L 03/04/19 09:00 Constitutional: Yes: Well Nourished, No Distress Eyes: Yes: WNL HENT: Yes: WNL Neck: Yes: WNL Cardiovascular: Yes: WNL Respiratory: Yes: WNL Gastrointestinal: Yes: WNL Genitourinary: Yes: WNL Musculoskeletal: Yes: Joint Stiffness Extremities: Yes: WNL Peripheral Pulses WNL: Yes Integumentary: Yes: WNL Wound/Incision: Yes: Clean/Dry, Well Approximated Neurological: Yes: WNL Psychiatric: Yes: WNL Labs: CBC, BMP 03/04/19 07:28 Assessment/Plan 78 yo lady with left knee OA left TKR. cont pain management. incentive spirometry. -HTN: cont amlodipine, coreg -CAD: on aspirin, lipitor -ID: empirically covered with cefazolin. -GI, DVT prophylaxis. -major anxiety and depression: on cymbalta -type 2 DM: on metformin, RISS, januvia -diabetic peripheral neuropathy: controlled with lyrica -post-op anemia: will monitor. -cont laxatives for opioid induced constipation awaiting labs -DC planed to rehab tomorrow. assessment and plan discussed with pt and daughter at bedside
--- NOTE | 2019-03-04 14:21 | PN ---
Progress Note (short form) - Note Progress Note: Post op day#1.S/p LTKR AHSAN plasty under spinal anesthesia with adductor canal and selective tibial N block uneventful.Patient stable and c/ o pain score of 6- 8/10 on movement for which she is on medication.No any anesthesia related problem.Patient Dc from the anesthesia care.
[2019-03-04] MEDS ORDERED: INSULIN (NOVOLOG) ASPART 100 UNITS/ML 10ML VIAL ONE (21:59)
[2019-03-04] MEDS: oxyCODONE HCL 5 MG TABLET PO PRN (22:17)
[2019-03-04] MEDS: ATORVASTATIN CA 10 MG TABLET (FP) PO SCH (22:17)
[2019-03-04] MEDS: LOPERAMIDE HCL 2 MG CAPSULE PO SCH (22:33)
[2019-03-05] MEDS: ACETAMINOPHEN 325 MG TABLET (FP) PO SCH ×4 (06:32→21:58)
[2019-03-05 07:23] LABS: HEMATOCRIT 25.7 % (32.4-45.2); HEMOGLOBIN 8.3 GM/dl (10.7-15.3); MCH 26.3 pg (25.7-33.7); MCHC 32.3 g/dl (32.0-36.0); MEAN CELL VOLUME 81.4 fl (80-96); MEAN PLT VOLUME 10.2 fl (7.5-11.1); PLATELET COUNT 172 K/MM3 (134-434); RBC 3.16 M/mm3 (3.60-5.2); RDW 14.6 % (11.6-15.6); WHITE BLOOD COUNT 12.3 K/mm3 (4.0-10.8)
[2019-03-05] MEDS: sitaGLIPtin PHOSPHATE 25 MG TABLET (FP) PO SCH (07:45)
[2019-03-05] MEDS: INSULIN SLIDING SCALE (NOVOLOG) 1 VIAL SQ SCH ×4 (07:45→22:03)
[2019-03-05] MEDS: ASPIRIN 325 MG TABLET PO SCH (08:42)
--- NOTE | 2019-03-05 09:01 | PN ---
Progress Note (short form) - Note Progress Note: Ortho Pt seen and examined s/p left celso tkr pod #2 Selected Entries 03/05/19 06:00 Temperature 98.7 F Pulse Rate 72 Respiratory 18 Rate Blood Pressure 119/40 L Laboratory Tests 03/05/19 07:13 WBC 12.3 H Hgb 8.3 L Hct 25.7 L Plt Count 172 dressing saturated, calf soft, nt rom 0-40, nvi a/p dressing changed PT dvt ppx pain control d/c planning for rehab today/tomorrow
[2019-03-05] MEDS: DULoxetine HCL 30 MG CAPSULE.DR PO SCH ×2 (09:53→21:57)
[2019-03-05] MEDS: NITROFURANTOIN MACROCRYSTAL 50 MG CAPSULE (FP) PO SCH ×5 (09:54→21:57)
[2019-03-05] MEDS: LOPERAMIDE HCL 2 MG CAPSULE PO SCH ×2 (09:54→21:57)
[2019-03-05] MEDS: PREGABALIN 50 MG CAPSULE PO SCH (09:55)
[2019-03-05] MEDS: amLODIPine BESYLATE 5 MG TABLET (FP) PO SCH ×2 (09:55→10:02)
[2019-03-05] MEDS: MULTIVITAMINS (DAILY MVI) TABLET (FP) PO SCH (09:55)
[2019-03-05] MEDS: CARVEDILOL 3.125 MG TABLET (FP) PO SCH ×3 (09:55→21:56)
[2019-03-05] MEDS: PANTOPRAZOLE 40 MG TABLET (FP) PO SCH (09:56)
[2019-03-05] MEDS: SENNOSIDES/DOCUSATE COMBO (SENNA PLUS) TABLET (UD) PO SCH ×2 (10:00→21:57)
--- NOTE | 2019-03-05 10:45 | PN ---
Progress Note, Physician Chief Complaint: left knee pain History of Present Illness: lafe knee DJD S/P TKR denies chest pain, SOB, palpitations, nausea, vomting, diarrhea - Current Medication List Current Medications: Active Medications Acetaminophen (Tylenol -) 650 mg PO Q6H [facility] Stop: 03/06/19 09:29 Last Admin: 03/05/19 08:42 Dose: 650 mg Al Hydroxide/Mg Hydroxide (Mylanta Oral Suspension -) 30 ml PO Q4H PRN PRN Reason: DYSPEPSIA Amlodipine Besylate (Norvasc -) 2.5 mg PO DAILY [facility] Last Admin: 03/05/19 10:02 Dose: Not Given Aspirin (Asa -) 325 mg PO DAILY@0800 [facility] Last Admin: 03/05/19 08:42 Dose: 325 mg Atorvastatin Calcium (Lipitor -) 10 mg PO HS [facility] Last Admin: 03/04/19 22:17 Dose: 10 mg Carvedilol (Coreg -) 3.125 mg PO BID [facility] Last Admin: 03/05/19 10:06 Dose: Not Given Duloxetine HCl (Cymbalta -) 60 mg PO BID [facility] Last Admin: 03/05/19 09:53 Dose: 60 mg Insulin Aspart (Novolog Vial Sliding Scale -) 1 vial SQ ACHS [facility]; Protocol Last Admin: 03/05/19 07:45 Dose: Not Given Loperamide HCl (Imodium -) 4 mg PO BID [facility] Last Admin: 03/05/19 09:54 Dose: 4 mg Magnesium Hydroxide (Milk Of Magnesia -) 30 ml PO PRN PRN PRN Reason: CONSTIPATION Metformin HCl (Glucophage Xr -) 500 mg PO 0700 [facility] Last Admin: 03/05/19 07:45 Dose: Not Given Multivitamins/Minerals/Vitamin C (Tab-A-Vit -) 1 tab PO DAILY [facility] Last Admin: 03/05/19 09:55 Dose: 1 tab Nitrofurantoin Macrocrystals (Macrodantin -) 50 mg PO QID [facility] Last Admin: 03/05/19 10:00 Dose: Not Given Ondansetron HCl (Zofran Injection) 4 mg IVPUSH Q6H PRN PRN Reason: NAUSEA Oxycodone HCl (Roxicodone -) 5 mg PO Q3H PRN PRN Reason: PAIN LEVEL 1-5 Oxycodone HCl (Roxicodone -) 10 mg PO Q3H PRN PRN Reason: PAIN LEVEL 6-10 Last Admin: 03/04/19 22:17 Dose: 10 mg Pantoprazole Sodium (Protonix -) 40 mg PO DAILY [facility] Last Admin: 03/05/19 09:56 Dose: 40 mg Pregabalin (Lyrica -) 200 mg PO DAILY [facility] Last Admin: 03/05/19 09:55 Dose: 200 mg Senna/Docusate Sodium (Pericolace -) 2 tablet PO BID [facility] Last Admin: 03/05/19 10:00 Dose: Not Given Sitagliptin Phosphate (Januvia -) 25 mg PO 0700 [facility] Last Admin: 03/05/19 07:45 Dose: Not Given - Objective Vital Signs: Vital Signs Temperature 98.7 F 03/05/19 06:00 Pulse Rate 71 03/05/19 10:00 Respiratory Rate 17 03/05/19 10:00 Blood Pressure 90/45 L 03/05/19 10:00 O2 Sat by Pulse Oximetry (%) 96 03/05/19 10:00 Constitutional: Yes: Well Nourished Eyes: Yes: WNL HENT: Yes: WNL Neck: Yes: WNL Cardiovascular: Yes: WNL Respiratory: Yes: WNL Gastrointestinal: Yes: WNL Genitourinary: Yes: WNL Musculoskeletal: Yes: Joint Stiffness Extremities: Yes: WNL Peripheral Pulses WNL: Yes Integumentary: Yes: WNL Wound/Incision: Yes: Clean/Dry, Well Approximated Neurological: Yes: WNL ...Motor Strength: WNL Psychiatric: Yes: WNL Labs: CBC, BMP 03/05/19 07:13 Assessment/Plan 78 yo lady with left knee OA left TKR. cont pain management. incentive spirometry. -HTN: cont amlodipine, coreg. hold if SBP<100 -CAD: on aspirin, lipitor -ID: empirically covered with cefazolin. -GI, DVT prophylaxis. -major anxiety and depression: on cymbalta -type 2 DM: on metformin, RISS, januvia -diabetic peripheral neuropathy: controlled with lyrica -post-op anemia: will monitor. -cont laxatives for opioid induced constipation awaiting labs -DC planed to rehab assessment and plan discussed with pt and daughter at bedside
[2019-03-05] MEDS: oxyCODONE HCL 5 MG TABLET PO PRN (20:00)
[2019-03-05] MEDS: ATORVASTATIN CA 10 MG TABLET (FP) PO SCH (21:57)
[2019-03-06] MEDS: ACETAMINOPHEN 325 MG TABLET (FP) PO SCH (03:00)
[2019-03-06] MEDS: sitaGLIPtin PHOSPHATE 25 MG TABLET (FP) PO SCH (06:24)
[2019-03-06] MEDS: INSULIN SLIDING SCALE (NOVOLOG) 1 VIAL SQ SCH (06:40)
[2019-03-06 07:40] LABS: BASO % 0.2 % (0-2.0); EOS % 2.1 % (0-4.5); HEMATOCRIT 28.2 % (32.4-45.2); HEMOGLOBIN 8.9 GM/dl (10.7-15.3); LYMPH % 17.8 % (8-40); MCH 26.2 pg (25.7-33.7); MCHC 31.7 g/dl (32.0-36.0); MEAN CELL VOLUME 82.5 fl (80-96); MEAN PLT VOLUME 10.6 fl (7.5-11.1); NEUT % 69.9 % (42.8-82.8); PLATELET COUNT 209 K/MM3 (134-434); RBC 3.42 M/mm3 (3.60-5.2); RDW 14.3 % (11.6-15.6); WHITE BLOOD COUNT 12.3 K/mm3 (4.0-10.8)
[2019-03-06] MEDS: ASPIRIN 325 MG TABLET PO SCH (08:00)
--- NOTE | 2019-03-06 08:19 | PN ---
Progress Note, Physician Chief Complaint: left knee pain History of Present Illness: lafe knee DJD S/P TKR denies chest pain, SOB, palpitations, nausea, vomting, diarrhea - Current Medication List Current Medications: Active Medications Acetaminophen (Tylenol -) 650 mg PO Q6H [facility] Stop: 03/06/19 09:29 Last Admin: 03/06/19 03:00 Dose: Not Given Al Hydroxide/Mg Hydroxide (Mylanta Oral Suspension -) 30 ml PO Q4H PRN PRN Reason: DYSPEPSIA Amlodipine Besylate (Norvasc -) 2.5 mg PO DAILY [facility] Last Admin: 03/05/19 10:02 Dose: Not Given Aspirin (Asa -) 325 mg PO DAILY@0800 [facility] Last Admin: 03/06/19 08:00 Dose: 325 mg Atorvastatin Calcium (Lipitor -) 10 mg PO HS [facility] Last Admin: 03/05/19 21:57 Dose: 10 mg Carvedilol (Coreg -) 3.125 mg PO BID [facility] Last Admin: 03/05/19 21:56 Dose: Not Given Duloxetine HCl (Cymbalta -) 60 mg PO BID [facility] Last Admin: 03/05/19 21:57 Dose: 60 mg Insulin Aspart (Novolog Vial Sliding Scale -) 1 vial SQ ACHS [facility]; Protocol Last Admin: 03/06/19 06:40 Dose: Not Given Loperamide HCl (Imodium -) 4 mg PO BID [facility] Last Admin: 03/05/19 21:57 Dose: Not Given Magnesium Hydroxide (Milk Of Magnesia -) 30 ml PO PRN PRN PRN Reason: CONSTIPATION Metformin HCl (Glucophage Xr -) 500 mg PO 0700 [facility] Last Admin: 03/06/19 06:24 Dose: Not Given Multivitamins/Minerals/Vitamin C (Tab-A-Vit -) 1 tab PO DAILY [facility] Last Admin: 03/05/19 09:55 Dose: 1 tab Nitrofurantoin Macrocrystals (Macrodantin -) 50 mg PO QID [facility] Last Admin: 03/05/19 21:57 Dose: Not Given Ondansetron HCl (Zofran Injection) 4 mg IVPUSH Q6H PRN PRN Reason: NAUSEA Oxycodone HCl (Roxicodone -) 5 mg PO Q3H PRN PRN Reason: PAIN LEVEL 1-5 Oxycodone HCl (Roxicodone -) 10 mg PO Q3H PRN PRN Reason: PAIN LEVEL 6-10 Last Admin: 03/05/19 20:00 Dose: 10 mg Pantoprazole Sodium (Protonix -) 40 mg PO DAILY [facility] Last Admin: 03/05/19 09:56 Dose: 40 mg Pregabalin (Lyrica -) 200 mg PO DAILY [facility] Last Admin: 03/05/19 09:55 Dose: 200 mg Senna/Docusate Sodium (Pericolace -) 2 tablet PO BID [facility] Last Admin: 03/05/19 21:57 Dose: Not Given Sitagliptin Phosphate (Januvia -) 25 mg PO 0700 [facility] Last Admin: 03/06/19 06:24 Dose: Not Given - Objective Vital Signs: Vital Signs Temperature 98.2 F 03/06/19 06:00 Pulse Rate 78 03/06/19 06:00 Respiratory Rate 18 03/06/19 06:00 Blood Pressure 135/49 L 03/06/19 06:00 O2 Sat by Pulse Oximetry (%) 97 03/06/19 06:00 Constitutional: Yes: Well Nourished, Calm Eyes: Yes: WNL HENT: Yes: WNL Neck: Yes: WNL Cardiovascular: Yes: WNL Respiratory: Yes: WNL Gastrointestinal: Yes: WNL Genitourinary: Yes: WNL Musculoskeletal: Yes: WNL, Joint Stiffness Extremities: Yes: WNL Edema: No Peripheral Pulses WNL: Yes Integumentary: Yes: WNL Wound/Incision: Yes: Clean/Dry, Well Approximated Neurological: Yes: WNL ...Motor Strength: WNL Psychiatric: Yes: WNL Labs: CBC, BMP 03/06/19 07:14 Assessment/Plan 78 yo lady with left knee OA left TKR. cont pain management. incentive spirometry. pain improved today -HTN: cont amlodipine, coreg. hold if SBP<100 -CAD: on aspirin, lipitor -ID: empirically covered with cefazolin. -GI, DVT prophylaxis. -major anxiety and depression: on cymbalta -type 2 DM: on metformin, RISS, januvia -diabetic peripheral neuropathy: controlled with lyrica -post-op anemia: will monitor. improving. -cont laxatives for opioid induced constipation awaiting labs -DC planed to rehab assessment and plan discussed with pt and daughter at bedside pickup scheduled for 11 AM
[2019-03-06 08:58] VITALS: BP 122/60; PULSE 83; TEMP 98.5
--- NOTE | 2019-03-06 09:18 | PN ---
Progress Note (short form) - Note Progress Note: Ortho Pt seen and examined s/p left celso tkr pod #3 Selected Entries 03/06/19 08:57 Temperature 98.5 F Pulse Rate 83 Respiratory 18 Rate Blood Pressure 122/60 Laboratory Tests 03/06/19 07:14 WBC 12.3 H Hgb 8.9 L Hct 28.2 L Plt Count 209 dressing c/d/i, calf soft, nt rom 0-40, nvi a/p PT dvt ppx pain control d/c planning for rehab today
--- NOTE | 2019-03-06 09:19 | DS ---
Physical Examination Vital Signs: Vital Signs Temperature 98.5 F 03/06/19 08:57 Pulse Rate 83 03/06/19 08:57 Respiratory Rate 18 03/06/19 08:57 Blood Pressure 122/60 03/06/19 08:57 O2 Sat by Pulse Oximetry (%) 97 03/06/19 08:51 Labs: CBC, BMP 03/06/19 07:14 Discharge Summary Reason For Visit: OSTEOARTHRITIS Procedures: Principal: left tkr Hospital Course: admitted for elective left celso tkr, uneventful post-op, stable for d/c Condition: Good - Instructions Diet, Activity, Other Instructions: Post-op Instructions-Total Knee Replacement Call the office for a follow-up appointment in 1 week - [phone] Aspirin 325mg daily for 6 weeks. Pain medication was sent into your pharmacy. Apply Graduated Compression Stockings (TEDs) to both lower extremities- remove daily for hygiene ONLY Apply Sequential Compression Device (SCDs) to both Lower extremities remove for PT and hygiene ONLY Apply cold packs to affected area for 15 minutes every 2 hours. Physical Therapist will come to your home for the first 5 days. You will be set up with outpatient PT at your first post-operative visit. Patient may ambulate as tolerated-encourage self care (at least every 2-3 hours while awake) with walker or cane Maintain Aquacel (waterproof) dressing to operative wound (will be removed by surgeon at first office visit) Keep dressing dry and intact. CONTACT THE OFFICE FOR ANY CHANGE IN YOUR CONDITION (for example-fever greater than 102 degrees, excessive bleeding from operative site, purulent drainage, severe swelling or pain) GO TO THE EMERGENCY ROOM IF THERE IS A MEDICAL EMERGENCY Knee Precautions: * Keep a rolled towel under affected heel while in bed or chair (to keep knee in extension) * Keep affected leg elevated except during mealtimes * DO NOT PLACE PILLOW UNDER AFFECTED KNEE * If you have any questions, please do not hesitate to call the office - . Referrals: Tong Sibley MD [Staff Physician] - Disposition: [facility] - Home Medications Comprehensive Discharge Medication List: Ambulatory Orders Amlodipine Besylate 2.5 mg PO DAILY 02/04/18 Atorvastatin Ca [Lipitor] 10 mg PO HS 02/04/18 Carvedilol 3.125 mg PO BID 02/04/18 Duloxetine HCl [Cymbalta -] 60 mg PO BID 02/04/18 Omeprazole 40 mg PO DAILY 02/04/18 Pregabalin [Lyrica] 200 mg PO DAILY 02/04/18 Sitagliptin Phosphate [Januvia] 25 mg PO DAILY 02/04/18 metFORMIN HCL [Metformin ER Osmotic] 500 mg PO DAILY 02/04/18 Nitrofurantoin Macrocrystal [Nitrofurantoin] 100 mg PO BID 02/25/19 Aspirin [ASA -] 325 mg PO DAILY@0800 tablet 03/03/19 Calcium Carbonate [Calcium] 500 mg PO DAILY 03/03/19 Multivitamins [Multivit ([facility] Formulary)] 1 tab PO DAILY 03/03/19 Oxycodone HCl/Acetaminophen [Percocet 5-325 mg Tablet -] 1 - 2 tab PO Q6H #50 tab MDD 8 03/03/19
[2019-03-06] MEDS: LOPERAMIDE HCL 2 MG CAPSULE PO SCH (09:46)
[2019-03-06] MEDS: DULoxetine HCL 30 MG CAPSULE.DR PO SCH (09:47)
[2019-03-06] MEDS: SENNOSIDES/DOCUSATE COMBO (SENNA PLUS) TABLET (UD) PO SCH (09:47)
[2019-03-06] MEDS: amLODIPine BESYLATE 5 MG TABLET (FP) PO SCH (09:47)
[2019-03-06] MEDS: CARVEDILOL 3.125 MG TABLET (FP) PO SCH (09:47)
[2019-03-06] MEDS: MULTIVITAMINS (DAILY MVI) TABLET (FP) PO SCH (09:48)
[2019-03-06] MEDS: PANTOPRAZOLE 40 MG TABLET (FP) PO SCH (09:48)
[2019-03-06] MEDS: PREGABALIN 50 MG CAPSULE PO SCH (09:48)
--- NOTE | 2019-03-06 17:11 | PATH ---
Surgical Pathology Report Patient Name: ANTONIO RENNER Med. Rec. #: [id number] /Age/Gender: 1940 (Age: 78) / F Account: [id number] Location: [facility] MED-SURG Taken: 03/03/2019 Received: 03/03/2019 Reported: 03/06/2019 Physicians: Tong Sibley M.D. Specimen(s) Received LEFT KNEE BONES Clinical History Osteoarthritis left knee Final Diagnosis BONE, KNEE, LEFT, TOTAL KNEE REPLACEMENT MAKOPLASTY: BONE WITH DEGENERATIVE JOINT DISEASE AND SYNOVIUM. Electronically Signed Lori Owen M.D. Gross Description Received in formalin labeled "left knee bones," is a 9.0 x 7.5 x 1.5 cm aggregate of multiple portions of bone and soft tissue. The tibial plateau measures 6.6 x 5.0 x 1.8 cm. One of the bones displays a 2.2 cm greatest dimension area of eburnation. The remaining articular surfaces are parker-yellow and diffusely granular. The underlying trabecular bone is yellow and hard. Frontend Engineer sections are submitted in one cassette, following decalcification. /03/05/201903/05/2019
== END 2019-03-06 11:56 | DRG 470 ==
LOC: FM/S 05:59
PROVIDERS: ADMIT Orthopaedic Surgery; ATTEND Orthopaedic Surgery
PROC: 8E0YXCZ Robotic Assisted Procedure of Lower Extremity (ICD-10-PCS; 2019-03-03)
PROC: 0SRD0J9 Replacement of Left Knee Joint with Synthetic Substitute, Cemented, Open Approach (ICD-10-PCS; principal; 2019-03-03 08:07)
DX: M17.12 Unilateral primary osteoarthritis, left knee (principal); E11.42 Type 2 diabetes mellitus with diabetic polyneuropathy; D64.9 Anemia, unspecified; I10 Essential (primary) hypertension; K59.03 Drug induced constipation; T40.2X5A Adverse effect of other opioids, initial encounter; Y92.89 Other specified places as the place of occurrence of the external cause; Z79.84 Long term (current) use of oral hypoglycemic drugs; I25.10 Atherosclerotic heart disease of native coronary artery without angina pectoris; F41.9 Anxiety disorder, unspecified; F32.9 Major depressive disorder, single episode, unspecified
CPT/HCPCS: 36415; 73560-TC-LT-FY; 82962; 85025; 85027; 88305-TC; 88311-TC; 94760; 97116-GP; 97163-GP